=== PATIENT | male | born 1995 | race Caucasian/White ===

== ENCOUNTER 2016-04-25 14:25 | Emergency (ER) | payer BC ==
[2016-04-25] MEDS ORDERED: ACETAMINOPHEN TAB 500 MG TAB PO STA (15:30)
[2016-04-25] MEDS ORDERED: RX INFO: IV CONTRAST WAS GIVEN 1 EACH MISC MISCELLANE PRN (15:30)
[2016-04-25 15:56] LABS: Basophils % (A) 0 %; CH 31.5; CHCM 35.3; Eosinophils # (A) 0.1 k/uL (0-0.7); Eosinophils % (A) 0 %; HCT 44.3 % (39.0-53.0); HDW 2.57; HGB 15.1 gm/dL (13.0-17.5); Luc # (Auto) 0.19; Luc % (Auto) 2; Lymphocytes # (A) 1.6 k/uL (1.0-4.8); Lymphocytes % (A) 14 %; MCH 30.6 pg (25.0-35.0); MCHC 34.2 g/dL (31.0-37.0); MCV 89.7 fL (80.0-100.0); Mean Platelet Volume 6.5; Monocytes # (A) 0.7 k/uL (0-1.0); Monocytes % (A) 6 %; Neutrophils # (A) 8.7 k/uL (1.3-7.7); Neutrophils % (A) 77 %; RBC 4.94 m/uL (4.30-5.90); RDW 13.2 % (11.5-15.5); WBC 11.3 k/uL (3.8-10.6); WBC (Perox) 11.55
--- NOTE | 2016-04-25 15:58 | ED ---
ENT HPI - General Chief complaint: ENT Stated complaint: Fever/Swollen throat Time Seen by Provider: 04/25/16 15:23 Source: patient, RN notes reviewed Mode of arrival: ambulatory Limitations: no limitations - History of Present Illness Initial comments: 21-year-old male presents emergency Department chief complaint swollen tonsils. Patient states started last few days. Patient states that he had a history of tonsillar abscess in November and which he was admitted to the Hospital in 3- 4 Days in [place] for IV antibiotics. Initially did talk about opening the abscess with never did. Patient states that he was seen by urgent care yesterday told him it was just a viral illness at the strep was negative. Patient had increase in swelling to his left tonsil with increased pain. Patient had fever consistent. Patient took some ibuprofen around 2:00. Is not having acetaminophen. Patient is swelling secretions well or states it is painful. Patient denies any headache, dizziness, neck stiffness. Patient denies any cough or chest congestion. - Related Data Home Medications Medication Instructions Recorded Confirmed Ibuprofen [Motrin] 800 mg PO BID PRN 04/25/16 04/25/16 Previous Rx's Medication Instructions Recorded Amoxicillin/Potassium Clav 1 tab PO Q12HR #20 tab 04/25/16 [Augmentin 875-125 Tablet] methylPREDNISolone [Medrol Dose 4 mg PO DIRECTED #1 pack 04/25/16 Pack] Allergies Allergy/AdvReac Type Severity Reaction Status Date / Time No Known Allergies Allergy Verified 04/25/16 15:03 Review of Systems ROS Statement: Those systems with pertinent positive or pertinent negative responses have been documented in the HPI. ROS Other: All systems not noted in ROS Statement are negative. Past Medical History Additional Past Medical History / Comment(s): throat abcess History of Any Multi-Drug Resistant Organisms: None Reported Past Surgical History: No Surgical Hx Reported Past Psychological History: No Psychological Hx Reported Smoking Status: Current every day smoker Past Alcohol Use History: Occasional Past Drug Use History: None Reported General Exam Limitations: no limitations General appearance: alert, in no apparent distress Head exam: Present: atraumatic, normocephalic, normal inspection Eye exam: Present: normal appearance, PERRL, EOMI. Absent: scleral icterus, conjunctival injection, periorbital swelling ENT exam: Present: mucous membranes moist, TM's normal bilaterally, normal external ear exam. Absent: normal exam, normal oropharynx (Erythema noted of the posterior pharynx, large edematous tonsil on the left with exudates bilaterally patient is swallowing secretions well) Neck exam: Present: normal inspection, full ROM, lymphadenopathy (Left anterior) . Absent: tenderness, meningismus Respiratory exam: Present: normal lung sounds bilaterally. Absent: respiratory distress, wheezes, rales, rhonchi, stridor Cardiovascular Exam: Present: normal rhythm, tachycardia, normal heart sounds. Absent: systolic murmur, diastolic murmur, rubs, gallop, clicks Neurological exam: Present: alert, oriented X3, CN II-XII intact Course Vital Signs 04/25/16 04/25/16 14:27 16:35 Temperature 101.5 F H 97.7 F Pulse Rate 124 H 92 Respiratory 17 16 Rate Blood Pressure 107/51 120/58 O2 Sat by Pulse 96 97 Oximetry Medical Decision Making - Medical Decision Making 21-year-old male present emergency department for fever, swollen tonsils. Patient has no tonsillar abscess on CT. Patient states strep, pedophile is negative. Patient was started antibiotics for possible Bactrim infection was most likely is viral. Patient given steroids to help reduce mom swelling. I strongly advise them that they need to see ENT this week for follow-up and that he most likely needs his tonsils, adenoids removed. Return parameters were discussed. Family, patient's questions were answered. - Lab Data Result diagrams: 04/25/16 15:45 04/25/16 15:45 Lab Results 04/25/16 04/25/16 04/25/16 Range/Units 15:45 15:45 15:45 WBC 11.3 H (3.8-10.6) k/uL RBC 4.94 (4.30-5.90) m/uL Hgb 15.1 (13.0-17.5) gm/dL Hct 44.3 (39.0-53.0) % MCV 89.7 (80.0-100.0) fL MCH 30.6 (25.0-35.0) pg MCHC 34.2 (31.0-37.0) g/dL RDW 13.2 (11.5-15.5) % Plt Count 210 (150-450) k/uL Neutrophils % 77 % Lymphocytes % 14 % Monocytes % 6 % Eosinophils % 0 % Basophils % 0 % Neutrophils # 8.7 H (1.3-7.7) k/uL Lymphocytes # 1.6 (1.0-4.8) k/uL Monocytes # 0.7 (0-1.0) k/uL Eosinophils # 0.1 (0-0.7) k/uL Basophils # 0.0 (0-0.2) k/uL Sodium 140 (137-145) mmol/L Potassium 3.7 (3.5-5.1) mmol/L Chloride 107 (98-107) mmol/L Carbon Dioxide 21 L (22-30) mmol/L Anion Gap 12 mmol/L BUN 8 L (9-20) mg/dL Creatinine 0.90 (0.66-1.25) mg/dL Est GFR (MDRD) Af Amer >60 (>60 ml/min/1.73 sqM) Est GFR (MDRD) Non-Af >60 (>60 ml/min/1.73 sqM) Glucose 93 (74-99) mg/dL Calcium 8.8 (8.4-10.2) mg/dL Total Bilirubin 0.7 (0.2-1.3) mg/dL AST 13 L (17-59) U/L ALT 33 (21-72) U/L Alkaline Phosphatase 63 (38-126) U/L Total Protein 7.1 (6.3-8.2) g/dL Albumin 4.1 (3.5-5.0) g/dL Heterophile Antibody Negative (Negative) Group A Strep Rapid (Negative) 04/25/16 Range/Units 15:45 WBC (3.8-10.6) k/uL RBC (4.30-5.90) m/uL Hgb (13.0-17.5) gm/dL Hct (39.0-53.0) % MCV (80.0-100.0) fL MCH (25.0-35.0) pg MCHC (31.0-37.0) g/dL RDW (11.5-15.5) % Plt Count (150-450) k/uL Neutrophils % % Lymphocytes % % Monocytes % % Eosinophils % % Basophils % % Neutrophils # (1.3-7.7) k/uL Lymphocytes # (1.0-4.8) k/uL Monocytes # (0-1.0) k/uL Eosinophils # (0-0.7) k/uL Basophils # (0-0.2) k/uL Sodium (137-145) mmol/L Potassium (3.5-5.1) mmol/L Chloride (98-107) mmol/L Carbon Dioxide (22-30) mmol/L Anion Gap mmol/L BUN (9-20) mg/dL Creatinine (0.66-1.25) mg/dL Est GFR (MDRD) Af Amer (>60 ml/min/1.73 sqM) Est GFR (MDRD) Non-Af (>60 ml/min/1.73 sqM) Glucose (74-99) mg/dL Calcium (8.4-10.2) mg/dL Total Bilirubin (0.2-1.3) mg/dL AST (17-59) U/L ALT (21-72) U/L Alkaline Phosphatase (38-126) U/L Total Protein (6.3-8.2) g/dL Albumin (3.5-5.0) g/dL Heterophile Antibody (Negative) Group A Strep Rapid Negative (Negative) Disposition Clinical Impression: Acute tonsillitis Disposition: HOME SELF-CARE Condition: Stable Instructions: Tonsillitis (ED) Additional Instructions: Please return to the Emergency Department if symptoms worsen or any other concerns. Prescriptions: Amoxicillin/Potassium Clav [Augmentin 875-125 Tablet] 1 tab PO Q12HR #20 tab methylPREDNISolone [Medrol Dose Pack] 4 mg PO DIRECTED #1 pack Referrals: Pat Mckeon MD [Primary Care Provider] - 1-2 days Avtar Walker DO [Doctor of Osteopathic Medicine] - 1-2 days Time of Disposition: 17:04
[2016-04-25 16:11] LABS: ALT 33 U/L (21-72); AST 13 U/L (17-59); Alkaline Phosphatase 63 U/L (38-126); Anion Gap 12 mmol/L; Blood Urea Nitrogen 8 mg/dL (9-20); Calcium 8.8 mg/dL (8.4-10.2); Carbon Dioxide 21 mmol/L (22-30); Chloride 107 mmol/L (98-107); Glucose 93 mg/dL (74-99); Non-African American GFR(MDRD) >60 (>60 ml/min/1.73 sqM); Potassium 3.7 mmol/L (3.5-5.1); Sodium 140 mmol/L (137-145); Total Bilirubin 0.7 mg/dL (0.2-1.3); Total Protein 7.1 g/dL (6.3-8.2)
--- NOTE | 2016-04-25 16:30 | CT ---
EXAMINATION TYPE: CT soft tissue neck w con DATE OF EXAM: 04/25/2016 4:05 PM COMPARISON: NONE HISTORY: Patient complains of swollen tonsils. CT DLP: 391.8 mGycm CONTRAST: CT scan of the neck is performed with IV Contrast, patient injected with 100 mL of Omnipaque 300. Contrast enhanced CT of the neck was performed from the skull base through the lung apices. AIRWAY: There is prominence of the bilateral tonsillar pillars of measuring approximately 2.8 x 2.4x5 .5 cm on the left and 2.5 x 2.4 x 4.0 cm on the right. There is luminal narrowing of the airway measu ring 3 mm in greatest transverse dimension on image 72 of 109. There is no evidence for abscess at th is time. Prominence of the adenoids is also appreciated measuring 3.3 cm AP dimension. Prominence is also noted of the sublingual tonsils. SALIVARY GLANDS: The submandibular and parotid glands are free of mass or inflammatory process. THYROID GLAND: No nodules or masses seen. LYMPH NODES: There are reactive enlarged lymph nodes within the internal jugular chains bilaterally m easuring up to 2 cm on the left and a 1.2 cm on the right. LUNG APICES: No nodule or mass is seen. OTHER: Vascular structures are patent. No significant degenerative change of the cervical spine. N o abscess seen. Ossified right hilar lymph nodes. IMPRESSION: 1. Inflammatory prominence of the bilateral tonsillar pillars, sublingual tonsils and adenoids. No ab scess at this time. Reactive adenopathy as discussed.
[2016-04-25 16:37] VITALS: BP 120/58; PULSE 92; RESP 16; TEMP 97.7
[2016-04-25] MEDS ORDERED: methylPREDNISolone SOD SUCCI 125 MG/2 ML VIAL IV STA (17:02)
== END 2016-04-25 17:13 | disposition home or self-care (01) ==
LOC: EC 14:25
DX: J03.90 Acute tonsillitis, unspecified (principal); F17.200 Nicotine dependence, unspecified, uncomplicated
CPT/HCPCS: 36415; 80053; 85025; 86308; 87081; 87430; 70491; 99283; 96374; J2930; Q9967

== ENCOUNTER 2016-07-01 07:21 | Day surgery (SDC) | payer BC ==
[2016-06-29 13:47] VITALS: BMI 22.5
[~2016-07-01 07:21] MED LIST: DEXAMETHASONE SOD PHOSPHATE 10 MG/ML 1 ML VIAL IV ONE; DEXAMETHASONE SOD PHOSPHATE 4 MG/ML 1 ML VIAL IV ONE; FAMOTIDINE 20 MG/2 ML VIAL IV ONE; HYDROmorphone 1 MG/ML 1 ML SYRINGE IVP PRN; LACTATED RINGERS 1,000 ML IV SCH; LIDOCAINE 1% 20 ML VIAL (10MG/ML) FOR IV START INTRADERMA PRN; MIDAZOLAM 2 MG/2 ML VIAL IV PRN; ONDANSETRON 4 MG/2 ML VIAL IVP ONE; Pre Op ABX Message 1 EACH MISC MISCELLANE ONE; SCOPOLAMINE 1.5MG/72HR PATCH TRANSDERM ONE
[2016-07-01] MEDS ORDERED: fentaNYL (PF) 50 MCG/ML 2 ML AMP ONE (08:48)
[2016-07-01] MEDS ORDERED: LIDOCAINE 1% INJ 10MG/ML (20 ML MDV) ONE ×2 (08:48)
[2016-07-01] MEDS ORDERED: SUCCINYLCHOLINE CHLORIDE VIAL 200 MG/10 ML VIAL IV ONE (08:48)
[2016-07-01] MEDS ORDERED: MIDAZOLAM 2 MG/2 ML VIAL ONE (08:48)
[2016-07-01] MEDS ORDERED: PROPOFOL 10 MG/ML 20 ML VIAL IV ONE (08:48)
[2016-07-01] MEDS ORDERED: DEXAMETHASONE SOD PHOS (MDV) 100 MG/10 ML VIAL ONE (08:48)
[2016-07-01] MEDS ORDERED: LIDOCAINE 1%-EPI 1:100,000 20 ML VIAL SQ ONE (09:12)
[2016-07-01] MEDS ORDERED: BUPIVACAINE (PF) 0.25% 30 ML VIAL SQ ONE (09:12)
[2016-07-01 09:51] VITALS: TEMP 97.3
--- NOTE | 2016-07-01 10:00 | P.OP ---
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 The situation at sober that he was actually hospitalized in [place] for his tonsillitis. He has problems with recurring abscesses of his tonsils and peritonsillar abscesses. 3 weeks previously went to the local emergency room with another peritonsillar abscess. The required hospitalization also. Again of his frequent hospitalizations and his frequent peritonsillar abscesses removal of tonsils and adenoids is advised. Operative Findings: Large cryptic tonsils and adenoids. Description of Procedure: Prior to surgery all risks, benefits, and alternative therapies were discussed in detail. Risks of bleeding, infection, need for secondary surgery, airway problems, anesthetic complications, etc. etc. were discussed in detail. Consent was obtained and all questions were answered. OPERATIVE PROCEDURE: This patient was taken to the operative room and placed in the supine position. A functioning IV line was in placed and the patient was monitored throughout the entire case by the department of anesthesia. The patient underwent general anesthetic with intubation and tube was secured. A McIvor mouth gag was placed into the patients mouth with care to avoid any trauma to the lips, teeth, gums or tongue. Mouth was opened and tongue was depressed. The tonsils were grasped with an Allis forceps and brought medially bilaterally. A subcapsular dissection was performed utilizing an Evac-70 handpiece with an Arthrotec setting of 7. The tonsils were removed without incident bilaterally and the tonsillar fossae were inspected and bleeding was nonexistent and stopped spontaneously with Coblation. A Marcaine and lidocaine mixture was injected into the peritonsillar area for anesthesia postoperatively. After the tonsillar fossae were reinspected and no bleeding was seen attention was then paid to the nasopharynx where a red rubber catheter was placed into the nose and out the mouth and used to retract the soft palate. With use of indirect mirror examination and the Coblation hand wand, the adenoid tissue was removed in that fashion again utilizing an Evac-70 handpiece with Arthrotec setting of 7. The adenoid tissues were removed and fulgurated. The patient tolerated this procedure well. The nasopharynx shows no signs of any bleeding. McIvor mouth gag and the red rubber catheter were removed. The stomach was suctioned and the patient was taken to postanesthesia recovery in excellent condition having tolerated this procedure well. The patient will follow up in the office in one week as scheduled.
[2016-07-01 10:33] VITALS: RESP 16
[2016-07-01] MEDS ORDERED: IBUPROFEN 200 MG TAB PO ONE (11:11)
[2016-07-01 11:19] VITALS: BP 107/64; PULSE 71
== END 2016-07-01 11:43 | disposition home or self-care (01) ==
LOC: OR 07:21
PROVIDERS: ATTEND Otolaryngology
DX: J35.03 Chronic tonsillitis and adenoiditis (principal); F17.200 Nicotine dependence, unspecified, uncomplicated; Z79.1 Long term (current) use of non-steroidal anti-inflammatories (NSAID)
CPT/HCPCS: 88304; 42821; J2250; J0330; J1100 ×2; J2405; J2001; J3010; J2704

== ENCOUNTER 2021-09-21 22:45 | Inpatient (IN) | payer MEDICAID, OTHER ==
--- NOTE | 2021-09-21 23:06 | ED ---
Psych HPI - General Source: patient, police Mode of arrival: ambulatory <David Pardo - Last Filed: 09/22/21 00:56> <Jaren Pedraza - Last Filed: 09/22/21 03:18> - General Chief Complaint: Psychiatric Symptoms Stated Complaint: Mental health Time Seen by Provider: 09/21/21 22:52 - History of Present Illness Initial Comments: This 26-year-old male presents with the complaint of some depression. He states that he has been depressed for most of his life. He relates that he has multiple psychiatric problems including bipolar disorder, ADHD, anxiety, autism. He states that it was somewhat worse over the last day. He has been having thoughts of hurting himself. He apparently called his therapist and they told him to come to the emergency department. He was here several months ago and the psychiatric team put him on some medications. He states that his lithium ran out and he did not get it refilled. He states that the other medications made him feel worse so he stopped taking them. He denies any current medical issues. He has had thoughts of cutting himself as well. No other modifying factors. (David Pardo) - Related Data Previous Rx's Medication Instructions Recorded Divalproex ER [Depakote ER] 500 mg PO HS 14 Days tab 06/02/21 LORazepam [Ativan] 0.5 mg PO DAILY PRN 3 Days #3 tab 06/02/21 Melatonin 6 mg PO HS 14 Days tablet 06/02/21 Nicotine 21Mg/24Hr Patch [Habitrol] 1 patch TRANSDERM DAILY 14 Days 06/02/21 patch Allergies Allergy/AdvReac Type Severity Reaction Status Date / Time No Known Allergies Allergy Verified 09/21/21 22:50 Review of Systems ROS Other: All systems not noted in ROS Statement are negative. <David Pardo - Last Filed: 09/22/21 00:56> ROS Other: All systems not noted in ROS Statement are negative. <Jaren Pedraza - Last Filed: 09/22/21 03:18> ROS Statement: Those systems with pertinent positive or pertinent negative responses have been documented in the HPI. Past Medical History Additional Past Medical History / Comment(s): THROAT ABSCESS History of Any Multi-Drug Resistant Organisms: None Reported Past Surgical History: No Surgical Hx Reported Past Anesthesia/Blood Transfusion Reactions: No Reported Reaction Additional Past Anesthesia/Blood Transfusion Reaction / Comment(s): FIRST ANSTHETIC Past Psychological History: No Psychological Hx Reported Smoking Status: Current every day smoker Past Alcohol Use History: Occasional Past Drug Use History: Cocaine - Past Family History Mother Family Medical History: No Reported History <CharDavidGiorgi - Last Filed: 09/22/21 00:56> General Exam Limitations: no limitations <CharGiorgi - Last Filed: 09/22/21 00:56> - General Exam Comments Initial Comments: GENERAL: The patient is well nourished and well hydrated. VITAL SIGNS: Heart rate, blood pressure, respiratory rate reviewed as recorded in nurse's notes. EYES: Pupils are round and reactive. Extraocular movements are intact. No conjunctival / lid redness or swelling. ENT: No external evidence of injury, swelling, or ecchymosis. Airway is patent. Throat is clear. NECK: Nontender. No swelling or evidence of injury. No subcutaneous emphysema. Trachea is midline. No thyroid mass. HEART: Regular rate and rhythm. Good peripheral pulses. LUNGS/CHEST: Breath sounds clear and equal bilaterally. No rales, rhonchi, or wheezes. No ecchymosis, subcutaneous emphysema, or tenderness. ABDOMEN: Abdomen soft without tenderness. No palpable masses or organomegaly. No peritoneal signs. No abdominal wall swelling or ecchymosis. EXTREMITIES: No extremity tenderness. Normal muscle tone and function. No thoracolumbar tenderness. NEUROLOGIC: Sensation is grossly intact. Cranial nerve exam reveals face is symmetrical, tongue is midline, speech is clear. SKIN: No abrasions or ecchymosis is noted. No induration or masses noted. PSYCHIATRIC: Alert and oriented. Appropriate behavior currently. (David Pardo) Course Vital Signs 09/21/21 22:47 Temperature 98.1 F Pulse Rate 101 H Respiratory 20 Rate Blood Pressure 156/96 O2 Sat by Pulse 98 Oximetry Medical Decision Making <CharDavidGiorgi - Last Filed: 09/22/21 00:56> - Medical Decision Making The patient was seen and examined. Alcohol breath test and urine drug screen are ordered. It sounds as though the patient is noncompliant with his rec ommended psychiatric medication regimen. Consult is placed for the psychiatric team. We're currently awaiting mental health evaluation and further care will be passed off to Dr. Pedraza. (David Pardo) - Lab Data Lab Results 09/21/21 Range/Units 23:27 Urine Opiates Screen Not Detected (NotDetected) Ur Oxycodone Screen Not Detected (NotDetected) Urine Methadone Screen Not Detected (NotDetected) Ur Propoxyphene Screen Not Detected (NotDetected) Ur Barbiturates Screen Not Detected (NotDetected) U Tricyclic Antidepress Not Detected (NotDetected) Ur Phencyclidine Scrn Not Detected (NotDetected) Ur Amphetamines Screen Detected H (NotDetected) U Methamphetamines Scrn Not Detected (NotDetected) U Benzodiazepines Scrn Not Detected (NotDetected) Urine Cocaine Screen Not Detected (NotDetected) U Marijuana (THC) Screen Not Detected (NotDetected) Disposition <David Pardo - Last Filed: 09/22/21 00:56> Is patient prescribed a controlled substance at d/c from ED?: No <Jaren Pedraza - Last Filed: 09/22/21 03:18> Clinical Impression: Depression, Suicidal ideation, Bipolar disorder, PTSD (post-traumatic stress disorder) Disposition: ADMITTED IP TO THIS HOSP Condition: Fair Referrals: None,Stated [Primary Care Provider] - 1-2 days
[2021-09-22 00:24] LABS: Amphetamine Screen,Urine Detected (NotDetected); Barbiturate Screen,Urine Not Detected (NotDetected); Benzodiazepines Screen,Urine Not Detected (NotDetected); Cocaine Screen,Urine Not Detected (NotDetected); Methadone Screen, Urine Not Detected (NotDetected); Opiate Screen,Urine Not Detected (NotDetected); Oxycodone Screen, Urine Not Detected (NotDetected); Phencyclidine Screen,Urine Not Detected (NotDetected); Tricyclic Antidepressant,Urine Not Detected (NotDetected); Urn Cannabinoid Scrn Not Detected (NotDetected)
[2021-09-22] MEDS ORDERED: NICOTINE 14MG/24HR PATCH TRANSDERM STA (02:29)
[2021-09-22] MEDS ORDERED: MAG HYDROX/AL HYDROX/SIMETH 30 ML CUP PO PRN (04:45)
[2021-09-22] MEDS ORDERED: MAGNESIUM HYDROXIDE 2,400 MG/10 ML CUP PO PRN (04:45)
[2021-09-22] MEDS ORDERED: ACETAMINOPHEN TAB 325 MG TAB PO PRN (04:45)
[2021-09-22] MEDS ORDERED: LORazepam 1 MG TAB PO PRN (04:45)
[2021-09-22] MEDS ORDERED: HALOPERIDOL LACTATE 5 MG/ML 1 ML VIAL IM PRN (04:45)
[2021-09-22] MEDS ORDERED: LORazepam 2 MG/ML INJ IM PRN (04:48)
[2021-09-22] MEDS ORDERED: haloperidoL 5 MG TAB PO PRN (04:49)
[2021-09-22 05:46] VITALS: RESP 18; TEMP 98.2
[2021-09-22] MEDS: NICOTINE 14MG/24HR PATCH TRANSDERM SCH (09:03)
[2021-09-22 10:41] LABS: Basophils % (A) 1 %; Eosinophils # (A) 0.2 k/uL (0-0.7); Eosinophils % (A) 4 %; HCT 44.2 % (39.0-53.0); HGB 14.7 gm/dL (13.0-17.5); Lymphocytes # (A) 1.8 k/uL (1.0-4.8); Lymphocytes % (A) 43 %; MCH 30.2 pg (25.0-35.0); MCHC 33.3 g/dL (31.0-37.0); MCV 90.7 fL (80.0-100.0); Mean Platelet Volume 7.2; Monocytes # (A) 0.2 k/uL (0-1.0); Monocytes % (A) 5 %; Neutrophils # (A) 1.9 k/uL (1.3-7.7); Neutrophils % (A) 46 %; Platelet Count 244 k/uL (150-450); RBC 4.88 m/uL (4.30-5.90); RDW 12.5 % (11.5-15.5); WBC 4.2 k/uL (3.8-10.6)
[2021-09-22 10:57] LABS: ALT 79 U/L (4-49); AST 39 U/L (17-59); African American GFR (CKD) >90 (>60 ml/min/1.73 sqM); Albumin 4.4 g/dL (3.5-5.0); Alkaline Phosphatase 68 U/L (38-126); Anion Gap 5 mmol/L; Blood Urea Nitrogen 14 mg/dL (9-20); Calcium 9.1 mg/dL (8.4-10.2); Carbon Dioxide 27 mmol/L (22-30); Chloride 110 mmol/L (98-107); Glucose 92 mg/dL (74-99); Non-African American GFR(CKD) >90 (>60 ml/min/1.73 sqM); Potassium 4.5 mmol/L (3.5-5.1); Sodium 142 mmol/L (137-145); Total Bilirubin 0.4 mg/dL (0.2-1.3); Total Protein 7.2 g/dL (6.3-8.2)
--- NOTE | 2021-09-22 14:14 | P.HP ---
Psychiatric H&P - . H&P Date: 09/22/21 History & Physical: Allergies Allergy/AdvReac Type Severity Reaction Status Date / Time No Known Allergies Allergy Verified 09/21/21 22:50 Vital Signs Temp 98.2 F 09/22/21 05:36 Pulse 84 09/22/21 05:36 Resp 18 09/22/21 05:36 BP 126/79 09/22/21 05:36 Pulse Ox 96 09/22/21 05:36 FiO2 Intake & Output 09/21/21 09/22/21 09/22/21 18:59 06:59 18:59 Weight 108.862 kg Laboratory Last Values WBC 4.2 k/uL (3.8-10.6) 09/22/21 09:44 RBC 4.88 m/uL (4.30-5.90) 09/22/21 09:44 Hgb 14.7 gm/dL (13.0-17.5) 09/22/21 09:44 Hct 44.2 % (39.0-53.0) 09/22/21 09:44 MCV 90.7 fL (80.0-100.0) 09/22/21 09:44 MCH 30.2 pg (25.0-35.0) 09/22/21 09:44 MCHC 33.3 g/dL (31.0-37.0) 09/22/21 09:44 RDW 12.5 % (11.5-15.5) 09/22/21 09:44 Plt Count 244 k/uL (150-450) 09/22/21 09:44 MPV 7.2 09/22/21 09:44 Neutrophils % 46 % 09/22/21 09:44 Lymphocytes % 43 % 09/22/21 09:44 Monocytes % 5 % 09/22/21 09:44 Eosinophils % 4 % 09/22/21 09:44 Basophils % 1 % 09/22/21 09:44 Neutrophils # 1.9 k/uL (1.3-7.7) 09/22/21 09:44 Lymphocytes # 1.8 k/uL (1.0-4.8) 09/22/21 09:44 Monocytes # 0.2 k/uL (0-1.0) 09/22/21 09:44 Eosinophils # 0.2 k/uL (0-0.7) 09/22/21 09:44 Basophils # 0.0 k/uL (0-0.2) 09/22/21 09:44 Sodium 142 mmol/L (137-145) 09/22/21 09:59 Potassium 4.5 mmol/L (3.5-5.1) 09/22/21 09:59 Chloride 110 mmol/L (98-107) H 09/22/21 09:59 Carbon Dioxide 27 mmol/L (22-30) 09/22/21 09:59 Anion Gap 5 mmol/L 09/22/21 09:59 BUN 14 mg/dL (9-20) 09/22/21 09:59 Creatinine 1.04 mg/dL (0.66-1.25) 09/22/21 09:59 Est GFR (CKD-EPI)AfAm >90 (>60 ml/min/1.73 sqM) 09/22/21 09:59 Est GFR (CKD-EPI)NonAf >90 (>60 ml/min/1.73 sqM) 09/22/21 09:59 Glucose 92 mg/dL (74-99) 09/22/21 09:59 Calcium 9.1 mg/dL (8.4-10.2) 09/22/21 09:59 Total Bilirubin 0.4 mg/dL (0.2-1.3) 09/22/21 09:59 AST 39 U/L (17-59) 09/22/21 09:59 ALT 79 U/L (4-49) H 09/22/21 09:59 Alkaline Phosphatase 68 U/L (38-126) 09/22/21 09:59 Total Protein 7.2 g/dL (6.3-8.2) 09/22/21 09:59 Albumin 4.4 g/dL (3.5-5.0) 09/22/21 09:59 TSH 0.998 mIU/L (0.465-4.680) 09/22/21 09:59 Urine Opiates Screen Not Detected (NotDetected) 09/21/21 23:27 Ur Oxycodone Screen Not Detected (NotDetected) 09/21/21 23:27 Urine Methadone Screen Not Detected (NotDetected) 09/21/21 23:27 Ur Propoxyphene Screen Not Detected (NotDetected) 09/21/21 23:27 Ur Barbiturates Screen Not Detected (NotDetected) 09/21/21 23:27 U Tricyclic Antidepress Not Detected (NotDetected) 09/21/21 23:27 Ur Phencyclidine Scrn Not Detected (NotDetected) 09/21/21 23:27 Ur Amphetamines Screen Detected (NotDetected) H 09/21/21 23:27 U Methamphetamines Scrn Not Detected (NotDetected) 09/21/21 23:27 U Benzodiazepines Scrn Not Detected (NotDetected) 09/21/21 23:27 Urine Cocaine Screen Not Detected (NotDetected) 09/21/21 23:27 U Marijuana (THC) Screen Not Detected (NotDetected) 09/21/21 23:27 Coronavirus (PCR) Not Detected (Not Detectd) 09/22/21 03:15 09/22/21 14:13 IDENTIFYING DATA: Patient is a 26-year-old male with significant history of under petition and certification for suicidal ideation with a plan to hang himself. HPI: Patient presented to the hospital on 09/22/2021, brought into the hospital by police after endorsing suicidal ideation with a plan to hang himself. The patient spoke to his therapist at [facility] who then notified police about his suicidal ideation and intention to hang himself. The patient has been off his medications since he was last discharged. The patient reports that he has been feeling increasingly anxious and depressed after experiencing a "manic episode" for 3 weeks straight. He reports that during this manic episode, he has been having increased sexual activity, increased energy, and increased impulsive behaviors. He reports that afterwards, he began to feel extremely depressed and had a "downward spiral." The patient reports that he has been feeling increasingly suicidal. He does endorse significant symptoms depression including hopelessness and helplessness. He reports a strong feeling of wanting to isolate. The patient does report some auditory hallucinations in the form of "God talking to me." However when asked to elaborate, the patient reports that this is his personal relationship with God. He is otherwise not reporting any other psychotic symptoms. The patient does report that he does have a significant history of trauma. However, the patient refuses to elaborate stating that he has previously his trauma to the psychiatrist during his last psychiatric hospitaliz ation. The patient reports a significant history of symptoms consistent with borderline personality disorder. He does report a significant history of self-injurious behavior, chronic feelings of emptiness, impulsivity and relationships, and splitting. He is admitted for further evaluation and management. PAST PSYCHIATRIC HISTORY: Patient states that he has been previously diagnosed with bipolar disorder. The patient suspects that he is autistic. The patient was discharged on a regimen of Depakote during his last hospitalization or her reports that lithium has been most beneficial for him. Patient was last hospitalized on the psychiatric unit in May 2021. The patient is open with [facility] Patient denies any history of suicide attempts in the past. PMH: Additional Past Medical History / Comment(s): THROAT ABSCESS History of Any Multi-Drug Resistant Organisms: None Reported Past Surgical History: No Surgical Hx Reported Past Anesthesia/Blood Transfusion Reactions: No Reported Reaction Additional Past Anesthesia/Blood Transfusion Reaction / Comment(s): FIRST ANSTHETIC Past Psychological History: No Psychological Hx Reported Smoking Status: Current every day smoker Past Alcohol Use History: Occasional Past Drug Use History: Cocaine ALLERGIES: NO KNOWN DRUG ALLERGIES CHEMICAL DEPENDENCY HISTORY: Patient reports that he vapes daily. He reports otherwise 1 cigarette per day. He reports rare alcohol use. He denies any drug use or marijuana use. The patient does have a history of psychedelics and cocaine use during his high school years. FAMILY PSYCHIATRIC/SUBSTANCE USE HISTORY: As per chart review, mother is addicted to opiates. SOCIAL HISTORY: Patient was born and raised in [place]. He is single, never . MENTAL STATUS EXAM: General Appearance: Patient appears to be stated age is alert, directable, and attempts to cooperate. Patient appears to have fair hygiene and grooming. Behavior: Patient is seated without any agitated behavior. Eye contact is poor. Speech: Patient's speech is fluent and nonpressured. Monotone. Mood/Affect: Patient reports their mood is depressed, affect is congruent and blunted. Suicidality/Homicidality: Patient is currently denying both suicidal and homicidal ideation. Perceptions: Patient denies any visual hallucinations and denies any auditory hallucinations Though content/process: There is no evidence of any delusional thought content and thought process is linear and goal-directed. Memory and concentration: AOX3, grossly intact for the purposes of this session. Can spell "WORLD" backwards Judgment and insight: poor STRENGTHS/WEAKNESSES: Strengths that the patient is resilient. Weakness is that the patient has poor coping skills. INTELLECT: average IMPRESSIONS: Bipolar 2 disorder, depressive episode Borderline personality disorder Posttraumatic stress disorder PLAN: -Patient is admitted under voluntary status to MHU for stabilization of psychiatric symptoms and safety. Patient signed adult voluntary form and medication consent and is placed in patient's chart. -Medications : Will start patient on [place] 300 mg by mouth at bedtime for mood stabilization Prazosin 1 mg by mouth at bedtime for PTSD -Ativan and Haldol PRN for agitation/aggression -Patient was counselled on substance abuse and desired to cut back on use -Patient was informed of the risks, benefits and side effects of the medication and patient verbally consented to taking the medications. Patient signed med consent form and was placed in chart. -Internal Medicine consult to perform medical evaluation and physical. -NRT - nicotine patch -SW on board for discharge planning. Encourage patient to participate in groups to work on coping skills. 09/22/21 14:13
[2021-09-22 14:29] LABS: Chol/HDL Ratio 4.12 Ratio; LDL Cholesterol,Calculated 90.4 mg/dL (0.0-131.0)
[2021-09-22] MEDS ORDERED: PRAZOSIN 1 MG CAP PO SCH (21:00)
[2021-09-22] MEDS ORDERED: LITHIUM CARBONATE 300 MG CAP PO SCH (21:00)
[2021-09-22 22:34] VITALS: BP 125/67; PULSE 103
[2021-09-23] MEDS: NICOTINE 14MG/24HR PATCH TRANSDERM SCH (09:09)
--- NOTE | 2021-09-23 13:10 | P.DS ---
Providers Date of admission: 09/22/21 04:42 Expected date of discharge: 09/23/21 Attending physician: Miguel Donaldson MD Consults: 09/22/21 04:45 Consult Physician Routine Consulting Provider: Katiana Arias Consult Reason/Comments: For H & P for Medical Follow Up Do you want consulting provider notified?: Yes Primary care physician: Stated None - Discharge Diagnosis(es) (1) Bipolar 2 disorder, major depressive episode Status: Acute Priority: High (2) Borderline personality disorder Status: Chronic Priority: Medium (3) PTSD (post-traumatic stress disorder) Status: Chronic Priority: Medium Hospital Course: Admission HPI: Patient is a 26-year-old male with significant history of under petition and certification for suicidal ideation with a plan to hang himself. Patient presented to the hospital on 09/22/2021, brought into the hospital by police after endorsing suicidal ideation with a plan to hang himself. The patient spoke to his therapist at [facility] who then notified police about his suicidal ideation and intention to hang himself. The patient has been off his medications since he was last discharged. The patient reports that he has been feeling increasingly anxious and depressed after experiencing a "manic episode" for 3 weeks straight. He reports that during this manic episode, he has been having increased sexual activity, increased energy, and increased impulsive behaviors. He reports that afterwards, he began to feel extremely depressed and had a "downward spiral." The patient reports that he has been feeling increasingly suicidal. He does endorse significant symptoms depression including hopelessness and helplessness. He reports a strong feeling of wanting to isolate. The patient does report some auditory hallucinations in the form of "God talking to me." However when asked to elaborate, the patient reports that this is his personal relationship with God. He is otherwise not reporting any other psychotic symptoms. The patient does report that he does have a significant history of trauma. However, the patient refuses to elaborate stating that he has previously divorce d his trauma to the psychiatrist during his last psychiatric hospitalization. The patient reports a significant history of symptoms consistent with borderline personality disorder. He does report a significant history of self-injurious behavior, chronic feelings of emptiness, impulsivity and relationships, and splitting. He is admitted for further evaluation and management. Patient states that he has been previously diagnosed with bipolar disorder. The patient suspects that he is autistic. The patient was discharged on a regimen of Depakote during his last hospitalization or her reports that lithium has been most beneficial for him. Patient was last hospitalized on the psychiatric unit in May 2021. The patient is open with [facility] Patient denies any history of suicide attempts in the past. Hospital course: Upon admission to the unit patient was initially presenting as cooperative and polite. He did endorse signifcant depressive symptoms following a perceived manic episode. He signed himself voluntarily onto the psychiatric unit. Patient was however directable and agreeable to commence treatment. Patient got along well with other patients on the unit and followed unit protocol. Patient was compliant with the medications and denied any side effects throughout hospital course. Patient was started on lithium and prazosin for management of mood stabilization and PTSD. Patient spoke of his stressors and engaged in therapy both group and individual. Patient was also seen by medical team for history and physical exam. The following day, the patient reported that he was feeling significantly better and wished to be discharged. He did not endorse any suicidal or homicidal ideation, intention, and/or plan. He reports no auditory or visual hallucinations. He denies any paranoia or other delusions. The patient expresses a strong desire to live for himself and for his future. He has been adherent with his medication is not endorsing any significant side effects. He reports that after discussing this provider has diagnosis of borderline personality disorder, he remains future oriented in terms of receiving care and treatment for this. The patient was counseled lengthening points medication adherence and appropriate outpatient follow-up. Furthermore, the patient has a history of substance use and was counseled great length on abstaining from all substances including alcohol and marijuana. Prior to discharge, family meeting will be arranged by social work associate to answer questions and ensure safety. Mental status exam: General Appearance: Patient appears to be stated age is alert, pleasant, and cooperative. Patient is in no acute distress and has fair hygiene and grooming Behavior: Patient is calmly seated without any agitated behavior. Speech: Patient's speech is fluent and nonpressured. Mood/Affect: Patient reports their mood is "much better", affect is congruent and euthymic. Suicidality/Homicidality: Patient denies having any suicidal or homicidal ideation intent or plan. Perceptions: Patient denies any auditory or visual hallucinations. Though content/process: There is no evidence of any delusional thought content and thought process is linear and goal-directed. Future oriented. Memory and concentration: AOX3, grossly intact for the purposes of this session. Can spell "WORLD" backwards correctly. Judgment and insight: Improved with guarded prognosis Impression: Bipolar 2 disorder, depressive episode Borderline personality disorder Posttraumatic stress disorder Plan: -Continue with discharge today as patient has improved and stabilized psychiatrically and is not currently an imminent threat to himself and/or others. Patient will remain at chronically elevated risk for harm to self and/or others due to his impulsivity and prior attempts at self-harm. -Continue medications: [place] 300 mg by mouth at bedtime with stabilization Prazosin 1 mg by mouth at bedtime for PTSD -Patient was counseled on the need for medication compliance and appropriate follow-up at mental health and also primary care for medical issues. Patient verbalized understanding and agreed. -Social work to arrange for and conduct family meeting to ensure safety upon discharge and answer any questions/concerns. Social work also to arrange for patients follow up appointments with [facility] along with follow up with primary care provider. -Patient counseled on abstaining from recreational drugs and marijuana and alcohol. Was informed/educated on the adverse effects on their physical and mental health. Patient verbally agreed and understood. -Patient was instructed to return to the hospital or seek immediate medical care if their psychiatric or medical symptoms do worsen or reoccur. -Psychoeducation and supportive therapy provided to patient. Risks and benefits of pharmacological treatment versus the risks and benefits of nontreatment weight and discussed. Informed consent discussion held. Common side effects of psychotropics discussed such as, but not limited to headache, GI disturbance, sexual dysfunction, movement disorders, sedation, and orthostatic hypotension. Life threatening and blackbox warnings of prescribed medications also discussed. Potential risks of operating a vehicle or heavy machinery discussed with patient at length. Advised on importance of compliance and a reliable and responsible manner. Patient advised to review FDA consumer labeling of all medications prior to taking. Patient verbalized understanding of potential risks, and agrees with current treatment plan. Patient advised to medically contact physician/emergency personnel if any acute changes in condition occur. Allergies Allergy/AdvReac Type Severity Reaction Status Date / Time No Known Allergies Allergy Verified 09/21/21 22:50 Laboratory Results WBC 4.2 k/uL (3.8-10.6) 09/22/21 09:44 RBC 4.88 m/uL (4.30-5.90) 09/22/21 09:44 Hgb 14.7 gm/dL (13.0-17.5) 09/22/21 09:44 Hct 44.2 % (39.0-53.0) 09/22/21 09:44 MCV 90.7 fL (80.0-100.0) 09/22/21 09:44 MCH 30.2 pg (25.0-35.0) 09/22/21 09:44 MCHC 33.3 g/dL (31.0-37.0) 09/22/21 09:44 RDW 12.5 % (11.5-15.5) 09/22/21 09:44 Plt Count 244 k/uL (150-450) 09/22/21 09:44 MPV 7.2 09/22/21 09:44 Neutrophils % 46 % 09/22/21 09:44 Lymphocytes % 43 % 09/22/21 09:44 Monocytes % 5 % 09/22/21 09:44 Eosinophils % 4 % 09/22/21 09:44 Basophils % 1 % 09/22/21 09:44 Neutrophils # 1.9 k/uL (1.3-7.7) 09/22/21 09:44 Lymphocytes # 1.8 k/uL (1.0-4.8) 09/22/21 09:44 Monocytes # 0.2 k/uL (0-1.0) 09/22/21 09:44 Eosinophils # 0.2 k/uL (0-0.7) 09/22/21 09:44 Basophils # 0.0 k/uL (0-0.2) 09/22/21 09:44 Sodium 142 mmol/L (137-145) 09/22/21 09:59 Potassium 4.5 mmol/L (3.5-5.1) 09/22/21 09:59 Chloride 110 mmol/L (98-107) H 09/22/21 09:59 Carbon Dioxide 27 mmol/L (22-30) 09/22/21 09:59 Anion Gap 5 mmol/L 09/22/21 09:59 BUN 14 mg/dL (9-20) 09/22/21 09:59 Creatinine 1.04 mg/dL (0.66-1.25) 09/22/21 09:59 Est GFR (CKD-EPI)AfAm >90 (>60 ml/min/1.73 sqM) 09/22/21 09:59 Est GFR (CKD-EPI)NonAf >90 (>60 ml/min/1.73 sqM) 09/22/21 09:59 Glucose 92 mg/dL (74-99) 09/22/21 09:[address] Glu mg/dL 108 09/22/21 09:42 Hemoglobin A1c 5.4 % (0.0-6.0) 09/22/21 09:42 Calcium 9.1 mg/dL (8.4-10.2) 09/22/21 09:59 Total Bilirubin 0.4 mg/dL (0.2-1.3) 09/22/21 09:59 AST 39 U/L (17-59) 09/22/21 09:59 ALT 79 U/L (4-49) H 09/22/21 09:59 Alkaline Phosphatase 68 U/L (38-126) 09/22/21 09:59 Total Protein 7.2 g/dL (6.3-8.2) 09/22/21 09:59 Albumin 4.4 g/dL (3.5-5.0) 09/22/21 09:59 Triglycerides 150.00 mg/dL (0.00-149.00) H 09/22/21 09:59 Cholesterol 159.00 mg/dL (0.00-200.00) 09/22/21 09:59 LDL Cholesterol, Calc 90.4 mg/dL (0.0-131.0) 09/22/21 09:59 VLDL Cholesterol, Calc 30.00 mg/dL (5.00-40.00) 09/22/21 09:59 HDL Cholesterol 38.60 mg/dL (40.00-60.00) L 09/22/21 09:59 Cholesterol/HDL Ratio 4.12 Ratio 09/22/21 09:59 TSH 0.998 mIU/L (0.465-4.680) 09/22/21 09:59 Urine Opiates Screen Not Detected (NotDetected) 09/21/21 23:27 Ur Oxycodone Screen Not Detected (NotDetected) 09/21/21 23:27 Urine Methadone Screen Not Detected (NotDetected) 09/21/21 23:27 Ur Propoxyphene Screen Not Detected (NotDetected) 09/21/21 23:27 Ur Barbiturates Screen Not Detected (NotDetected) 09/21/21 23:27 U Tricyclic Antidepress Not Detected (NotDetected) 09/21/21 23:27 Ur Phencyclidine Scrn Not Detected (NotDetected) 09/21/21 23:27 Ur Amphetamines Screen Detected (NotDetected) H 09/21/21 23:27 U Methamphetamines Scrn Not Detected (NotDetected) 09/21/21 23:27 U Benzodiazepines Scrn Not Detected (NotDetected) 09/21/21 23:27 Urine Cocaine Screen Not Detected (NotDetected) 09/21/21 23:27 U Marijuana (THC) Screen Not Detected (NotDetected) 09/21/21 23:27 Coronavirus (PCR) Not Detected (Not Detectd) 09/22/21 03:15 Vital Signs Temp 98.2 F 09/22/21 05:36 Pulse 103 H 09/22/21 22:33 Resp 18 09/22/21 05:36 BP 125/67 09/22/21 22:33 Pulse Ox 96 09/22/21 05:36 FiO2 Patient Condition at Discharge: Stable Plan - Discharge Summary New Discharge Prescriptions: New [place] Carbonate 300 mg PO HS 15 Days cap Prazosin [Minipress] 1 mg PO HS 15 Days cap Discontinued LORazepam [Ativan] 0.5 mg PO DAILY PRN 3 Days #3 tab PRN Reason: Anxiety Melatonin 6 mg PO HS 14 Days tablet Divalproex ER [Depakote ER] 500 mg PO HS 14 Days tab Nicotine 21Mg/24Hr Patch [Habitrol] 1 patch TRANSDERM DAILY 14 Days patch Discharge Medication List Norborne Carbonate 300 mg PO HS 15 Days cap 09/23/21 [Rx] Prazosin [Minipress] 1 mg PO HS 15 Days cap 09/23/21 [Rx] Follow up Appointment(s)/Referral(s): [facility] - 09/24/21 12:30 pm (09/24/2021 @ 1:00 PM with Jesu Masterson.) [facility] Ketty [email or web address] [NON-STAFF] - 1 Week Patient Instructions/Handouts: How to Stop Smoking (DC), Depression (DC) Activity/Diet/Wound Care/Special Instructions: Avoid the use of street drugs and alcohol. Take all prescriptions as prescribed. When you are in need of refills on your medications, please contact your medical provider and/or outpatient psychiatrist to have this done. Please go to scheduled outpatient appointment for aftercare treatment. If symptoms return or become worse, call the crisis line at and/or go to the nearest emergency room for evaluation. Discharge Disposition: HOME SELF-CARE
== END 2021-09-23 11:28 | disposition home or self-care (01) | DRG 885 ==
LOC: EC 22:45 → 3MHU 09-22 04:42
PROVIDERS: ADMIT Psychiatry & Neurology Psychiatry; ATTEND Psychiatry & Neurology Psychiatry
DX: F31.81 Bipolar II disorder (principal); R45.851 Suicidal ideations; Z91.14 Patient's other noncompliance with medication regimen; F14.11 Cocaine abuse, in remission; F19.11 Other psychoactive substance abuse, in remission; F84.0 Autistic disorder; F60.3 Borderline personality disorder; F43.10 Post-traumatic stress disorder, unspecified; F17.210 Nicotine dependence, cigarettes, uncomplicated; F90.9 Attention-deficit hyperactivity disorder, unspecified type; Z20.822 Contact with and (suspected) exposure to COVID-19; Z79.899 Other long term (current) drug therapy; Z91.52 Personal history of nonsuicidal self-harm; Z81.3 Family history of other psychoactive substance abuse and dependence
CPT/HCPCS: 80053; 80061; 80306; 82075; 83036; 84443; 85025; 87635; 99285

== ENCOUNTER 2021-11-27 18:22 | Inpatient (IN) | payer MEDICAID, OTHER ==
[2021-11-27] MEDS ORDERED: HALOPERIDOL LACTATE 5 MG/ML 1 ML VIAL IM PRN (18:45)
[2021-11-27] MEDS ORDERED: MAG HYDROX/AL HYDROX/SIMETH 30 ML CUP PO PRN (18:45)
[2021-11-27] MEDS ORDERED: ACETAMINOPHEN TAB 325 MG TAB PO PRN (18:45)
[2021-11-27] MEDS ORDERED: MAGNESIUM HYDROXIDE 2,400 MG/10 ML CUP PO PRN (18:45)
[2021-11-28] MEDS ORDERED: NICOTINE 14MG/24HR PATCH TRANSDERM SCH (09:00)
[2021-11-28] MEDS ORDERED: LORazepam 2 MG/ML INJ IM PRN (11:10)
[2021-11-28] MEDS: NICOTINE 21MG/24HR PATCH TRANSDERM SCH (12:44)
--- NOTE | 2021-11-28 18:29 | P.HP ---
Psychiatric H&P - . H&P Date: 11/28/21 History & Physical: IDENTIFYING DATA: Patient is a single 26 year old male with history of multiple suicide attempts, lives with a roommate. HPI: Patient presented to the hospital as a transfer from [facility] due to suicide attempt on 25 pills of Abilify (10 mg each pill). He reports he researched the Abilify to see what the lethal dose would be and states he knew this was below a "lethal dose". He reports being alive is "exhausting" but is glad to be alive and glad the suicide attempt was unsuccessful. He reports his mood right now is "I'm fine", but objectively appears depressed. He appears to minimize the severity of his suicidal actions and states he was just acting out for attention. Patient denies any suicidal or homicidal ideations, intent or plan. At this time patient denies any auditory or visual hallucinations. No paranoid ideations expressed. Patient denies any flight of ideas racing thoughts and increased in goal directed behavior. He was recently discharged from [facility] in August 2021 on [place]ville 300 mg QHS and Prazosin 1 mg QHS, but he reports he is currently not taking any medications. He reports his roommate tossed out his medications when he was admitted in May 2021 so he claims he does not have any medications at home currently since he overdosed on the Abilify. Patient denies illicit drug or alcohol use. He smokes 1 ppd cigarettes plus vaping. PAST PSYCHIATRIC HISTORY: Diagnosis: Bipolar II disorder, PTSD, Borderline personality disorder Medications: Depakote, [place], Abilify, Prazosin. The patient was discharged on a regimen of Depakote during his last hospitalization or her reports that lithium has been most beneficial for him. Patient was last hospitalized on the psychiatric unit in May 2021 and again in August 2021. He has history of multiple suicide attempts in the past. PMH: denies ALLERGIES: as per EMR CHEMICAL DEPENDENCY HISTORY: Past drug use includes psychedelics, cocaine, mushrooms, marijuna in the past, but none recently. FAMILY PSYCHIATRIC/SUBSTANCE USE HISTORY: Grandmother with mental health problems, mother addicted to opioid pills. SOCIAL HISTORY: Born and raised in [facility] by both parents. Has one older sister. Support system includes his roommate and "myself". Estranged "very" from family. History of childhood trauma "very". Completed few years of college. Never , no children. Lives with roommate. Prefers male romantic partners. Unemployed, lives with roommate for free, is applying for jobs. MENTAL STATUS EXAM: General Appearance: Patient appears to be stated age is alert, dressed in black casual clothing, sanchez, fair hygiene and grooming, tattoos. Behavior: Patient is seated without any agitated behavior. Speech: Patient's speech is fluent and non-pressured. Mood/Affect: Patient reports their mood is "I'm fine", affect is incongruent and labile. Suicidality/Homicidality: Patient denies having any homicidal ideation intent or plan. Denies any suicidal ideations intent or plan. Perceptions: Patient denies any visual hallucinations and denies any auditory hallucinations. Though content/process: There is no evidence of any delusional thought content and thought process is linear and goal-directed. Memory and concentration: AOX3, grossly intact for the purposes of this session. Can spell "WORLD" backwards Judgment and insight: Poor STRENGTHS/WEAKNESSES: strength is that patient is resilient. Weakness is that patient has poor judgment and is impulsive. INTELLECT: Average IMPRESSIONS: Bipolar 2 disorder, depressive episode Borderline personality disorder Posttraumatic stress disorder Tobacco use disorder/Nicotine dependence PLAN: -Patient is admitted under involuntary petition/cert status to [facility] for stabilization of psychiatric symptoms and safety. Patient has signed adult voluntary form and medication consent and is placed in patient's chart. -Medications: Will start patient on Midville 300 mg QHS for mood. -Ativan and Haldol PRN for agitation/aggression -Patient was informed of the risks, benefits and side effects of the medication and patient verbally consented to taking the medications. Patient signed med consent form and was placed in chart. -Internal Medicine consult to perform medical evaluation and physical. -NRT - nicotine patch -SW on board for discharge planning. Encourage patient to participate in groups to work on coping skills. Allergies Allergy/AdvReac Type Severity Reaction Status Date / Time No Known Allergies Allergy Verified 09/21/21 22:50 Vital Signs Temp 97.2 F L 11/28/21 11:26 Pulse 104 H 11/28/21 11:26 Resp 16 11/28/21 11:26 BP 125/82 11/28/21 11:26 Pulse Ox FiO2 Intake & Output 11/27/21 11/28/21 11/28/21 18:59 06:59 18:59 Weight 111.6 kg 111.6 kg 11/28/21 18:00 11/28/21 18:11
[2021-11-28] MEDS: LITHIUM CARBONATE 300 MG CAP PO SCH (20:12)
[2021-11-28] MEDS: LORazepam 1 MG TAB PO PRN (20:12)
[2021-11-29 07:58] LABS: ALT 126 U/L (4-49); AST 77 U/L (17-59); African American GFR (CKD) >90 (>60 ml/min/1.73 sqM); Albumin 4.8 g/dL (3.5-5.0); Alkaline Phosphatase 66 U/L (38-126); Anion Gap 11 mmol/L; Blood Urea Nitrogen 15 mg/dL (9-20); Calcium 9.4 mg/dL (8.4-10.2); Carbon Dioxide 27 mmol/L (22-30); Chloride 105 mmol/L (98-107); Glucose 111 mg/dL (74-99); Non-African American GFR(CKD) 88 (>60 ml/min/1.73 sqM); Potassium 4.7 mmol/L (3.5-5.1); Sodium 143 mmol/L (137-145); Total Bilirubin 0.8 mg/dL (0.2-1.3); Total Protein 7.3 g/dL (6.3-8.2)
[2021-11-29] MEDS: NICOTINE 21MG/24HR PATCH TRANSDERM SCH ×2 (09:49→10:28)
[2021-11-29] MEDS: LORazepam 1 MG TAB PO PRN ×2 (10:58→19:00)
[2021-11-29 11:41] LABS: Chol/HDL Ratio 4.51 Ratio; LDL Cholesterol,Calculated 99.4 mg/dL (0.0-131.0)
[2021-11-29] MEDS: haloperidoL 5 MG TAB PO PRN (19:01)
--- NOTE | 2021-11-29 20:27 | P.PN ---
Progress Note - Text Progress Note Date: 11/29/21 Interval history: Patient was seen resting in his room and was directable and agreeable to speak with verse writer. He rates his mood as "4/10" with 10 being the best mood, depressed. He declines trial of an antidepressant and feels that [place] works the best for him. At this time, patient denies any suicidal or homicidal ideation, intent or plan. Denies any auditory or visual hallucinations. Patient denies any side effects from the medications and has been compliant with meds. He took Ativan 1 mg po x 1 and Haldol 5 mg po x1 earlier today for anxiety/agitation. He inquires about discharge tomorrow and was directed to discuss his treatment with his primary team tomorrow. Mental status exam: General Appearance: Patient appears to be stated age, dressed in black casual clothing, sanchez, fair hygiene and grooming, tattoos. Behavior: Patient is seated without any agitated behavior. Speech: Patient's speech is fluent and non-pressured. Mood/Affect: Patient reports their mood is "4/10", affect is congruent and constricted. Suicidality/Homicidality: Patient denies having any homicidal ideation intent or plan. Denies any suicidal ideations intent or plan. Perceptions: Patient denies any visual hallucinations and denies any auditory hallucinations. Though content/process: There is no evidence of any delusional thought content and thought process is linear and goal-directed. Memory and concentration: AOX3, grossly intact for the purposes of this session. Judgment and insight: improving mildly Assessment/Plan: Continue with current diagnosis. Patient continues to meet criteria for inpatient psychiatric admission for symptom stabilization and safety. Patient will be maintained on current psychotropic medication regimen. Monitor for medication compliance and for any psychotropic medication side effects. Will continue to monitor ongoing response to treatment. Encouraged participation in milieu.
[2021-11-29] MEDS: LITHIUM CARBONATE 300 MG CAP PO SCH (20:30)
[2021-11-30] MEDS: NICOTINE 21MG/24HR PATCH TRANSDERM SCH (07:47)
--- NOTE | 2021-11-30 12:48 | P.PN ---
Progress Note - Text Progress Note Date: 11/30/21 Interval History: Patient was seen wandering the hallways and was directable and agreeable to speak with feature writer in the office. Currently, the patient is not reporting any suicidal or homicidal ideation, intention, and/or plan. He reports that he feels that he does not need inpatient psychiatric care. He states that he has been having a problem with the idea that he is a narcissist. He reports that he has been doing "plenty of soul searching." He is currently not reporting any auditory or visual hallucinations. He is denying any paranoia or other delusions. He has been adherent with his medication and is not reporting any significant side effects. Mental Status Exam: General Appearance: Patient appears to be stated age is alert, directable, and cooperative. Behavior: Patient is calmly seated without any agitated behavior. Speech: Patient's speech is fluent and nonpressured. Mood/Affect: Mood is improving mildly, affect is congruent and constricted. Slightly irritable. Suicidality/Homicidality: Patient denies having any suicidal or homicidal ideation intent or plan. Perceptions: Patient denies any visual hallucinations and denies any auditory hallucinations Though content/process: There is no evidence of any delusional thought content and thought process is linear and goal-directed. Memory and concentration: AOX3, grossly intact for the purposes of this session Judgment and insight: Improving mildly Vital Signs Temp 97.8 F 11/30/21 06:36 Pulse 72 11/30/21 06:36 Resp 16 11/30/21 06:36 BP 101/67 11/30/21 06:36 Pulse Ox 99 11/30/21 06:36 FiO2 Intake & Output 11/29/21 11/30/21 11/30/21 18:59 06:59 18:59 Weight 119.5 kg Assessment Bipolar 2 disorder, depressive episode Borderline personality disorder Posttraumatic stress disorder Tobacco use disorder/Nicotine dependence Plan: -Patient continues to meet criteria for inpatient psychiatric admission for symptom stabilization and safety. Patient has signed adult voluntary form and medication consent and was placed in patient's chart. -Medications: Continue lithium 300 mg daily at bedtime for mood Start Topamax 25 mg by mouth twice a day for off label use for PTSD and mood stability. -When necessary Ativan and Haldol for agitation/aggression. -NRT - nicotine patch -SW on board for discharge planning. Encouraged the patient to participate in milieu.
--- NOTE | 2021-11-30 13:28 | P.CONS ---
History of Present Illness - Reason for Consult Consult date: 11/30/21 - History of Present Illness Patient is a 26-year-old male with PMH of gastric ulcers who is transferred from [facility] for behavioral disturbances. He has been admitted to the mental health unit for further management of symptoms. [facility] has been consulted for medical management this patient. Patient has no complaints today. He denies any headache, lower extremity edema, nausea or vomiting, fever or chills, cough, chest pain, shortness of breath, palpitations, changes in urination or bowel habits. No changes in appetite or weight. He denies any dizziness, numbness/weakness/tingling of the extremities. Patient reports smoking pack of cigarettes daily. He denies any alcohol or illicit drug use Review of systems is performed and is negative except above. General: non toxic, no distress, appears at stated age Derm: warm, dry Head: atraumatic, normocephalic, symmetric Eyes: EOMI, no lid lag, anicteric sclera Cardiovascular: S1S2 reg, no murmur, positive posterior tibial pulse bilateral Lungs: CTA bilateral, no rhonchi, no rales , no accessory muscle use Abdominal: soft, nontender to palpation, no guarding, no appreciable organomegaly Ext: no gross muscle atrophy, no edema, no contractures Neuro: CN II-XI grossly intact, no focal neuro deficits Psych: Alert, oriented, appropriate affect #Gastric ulcer #Transaminitis #Low TSH #Nicotine abuse Patient be started on Protonix 40 mg by mouth daily. Unknown etiology for transaminitis. Total bilirubin is within normal limits. No signs of obstruction. Continue to monitor. TSH of 0.294. Obtain free T4. Patient has been offered a nicotine patch. Thank you for this consultation. Please call [facility] with additional questions or concerns. Past Medical History Additional Past Medical History / Comment(s): THROAT ABSCESS History of Any Multi-Drug Resistant Organisms: None Reported Past Surgical History: No Surgical Hx Reported Past Anesthesia/Blood Transfusion Reactions: No Reported Reaction Additional Past Anesthesia/Blood Transfusion Reaction / Comm: FIRST ANSTHETIC Past Psychological History: No Psychological Hx Reported Smoking Status: Current every day smoker Past Alcohol Use History: Occasional Additional Past Alcohol Use History / Comment(s): STARTED SMOKING AT AGE 16 SMOKES 1/2PPD Past Drug Use History: Cocaine - Past Family History Mother Family Medical History: No Reported History Medications and Allergies Home Medications Medication Instructions Recorded Confirmed Type [place] Carbonate 300 mg PO HS 15 Days cap 09/23/21 Rx Prazosin [Minipress] 1 mg PO HS 15 Days cap 09/23/21 Rx Allergies Allergy/AdvReac Type Severity Reaction Status Date / Time No Known Allergies Allergy Verified 09/21/21 22:50 Physical Exam Vitals: Vital Signs Temp Pulse Resp BP Pulse Ox 11/30/21 06:36 97.8 F 72 16 101/67 99 Results CBC & Chem 7: 11/29/21 07:20
[2021-11-30] MEDS: LORazepam 1 MG TAB PO PRN (16:20)
[2021-11-30] MEDS: haloperidoL 5 MG TAB PO PRN (18:53)
[2021-11-30] MEDS: LITHIUM CARBONATE 300 MG CAP PO SCH (21:00)
[2021-11-30] MEDS: TOPIRAMATE 25 MG TAB PO SCH (21:00)
[2021-12-01 06:33] LABS: T4, Free (Free Thyroxine) 1.16 ng/dL (0.800-1.800)
[2021-12-01 06:55] VITALS: BP 117/59; PULSE 91; RESP 18; TEMP 96.7
[2021-12-01] MEDS ORDERED: PANTOPRAZOLE 40 MG TABLET PO SCH (07:30)
[2021-12-01] MEDS: TOPIRAMATE 25 MG TAB PO SCH (08:02)
[2021-12-01] MEDS: NICOTINE 21MG/24HR PATCH TRANSDERM SCH (08:02)
--- NOTE | 2021-12-01 11:37 | P.DS ---
Providers Date of admission: 11/28/21 10:50 Expected date of discharge: 12/01/21 Attending physician: Miguel Donaldson MD Consults: 11/27/21 18:45 Consult Physician Routine Consulting Provider: Parrish Frye Consult Reason/Comments: H and P Do you want consulting provider notified?: Yes Primary care physician: Stated None - Discharge Diagnosis(es) (1) Bipolar 2 disorder, major depressive episode Status: Acute Priority: High (2) Borderline personality disorder Status: Chronic Priority: Medium (3) PTSD (post-traumatic stress disorder) Status: Chronic Priority: Medium (4) Nicotine dependence Status: Chronic Priority: Medium Hospital Course: Admission HPI: Patient is a single 26 year old male with history of multiple suicide attempts, lives with a roommate. Patient presented to the hospital as a transfer from [facility] due to suicide attempt on 25 pills of Abilify (10 mg each pill). He reports he researched the Abilify to see what the lethal dose would be and states he knew this was below a "lethal dose". He reports being alive is "exhausting" but is glad to be alive and glad the suicide attempt was unsuccessful. He reports his mood right now is "I'm fine", but objectively appears depressed. He appears to minimize the severity of his suicidal actions and states he was just acting out for attention. Patient denies any suicidal or homicidal ideations, intent or plan. At this time patient denies any auditory or visual hallucinations. No paranoid ideations expressed. Patient denies any flight of ideas racing thoughts and increased in goal directed behavior. He was recently discharged from [facility] in August 2021 on Arcata 300 mg QHS and Prazosin 1 mg QHS, but he reports he is currently not taking any medications. He reports his roommate tossed out his medications when he was admitted in May 2021 so he claims he does not have any medications at home currently since he overdosed on the Abilify. Patient denies illicit drug or alcohol use. He smokes 1 ppd cigarettes plus vaping. Diagnosis: Bipolar II disorder, PTSD, Borderline personality disorder Medications: Depakote, Arcata, Abilify, Prazosin. The patient was discharged on a regimen of Depakote during his last hospitalization or her reports that lithium has been most beneficial for him. Patient was last hospitalized on the psychiatric unit in May 2021 and again in August 2021. He has history of multiple suicide attempts in the past. Hospital course: Upon admission to the unit patient was initially reporting that he was fine although appeared to be labile. Patient was however directable and agreeable to commence treatment. Patient got along well with other patients on the unit and followed unit protocol. Patient was compliant with the medications and denied any side effects throughout hospital course. The patient was started on lithium and Topamax. The patient did endorse significant cluster B personality traits and symptoms such as narcissism, borderline personality traits, sociopathy, and histrionics. Despite this, the patient engaged inappropriate conduct with staff and peers. On the day of discharge, the patient is not reporting any suicidal or homicidal ideation, intention, and/or plan. He is not reporting any auditory or visual hallucinations. He denies any paranoia or other delusions. The patient has been adherent with his medication is not reporting any significant side effects. The patient is denying any access to firearms other weapons. He is future and goal oriented. Patient was counseled at length and the points medication adherence appropriate outpatient follow-up. The patient does not have a significant history of substance abuse however was counseled on abstaining from all substances including alcohol, tobacco, and marijuana. Prior to discharge, family meeting was arranged by nursing home social worker to answer questions and ensure safety. The patient is currently enrolled in dialectical behavioral therapy and was encouraged to continue with his outpatient treatment and intensive therapy sessions. Mental status exam: General Appearance: Patient appears to be stated age is alert, pleasant, and cooperative. Patient is in no acute distress and has fair hygiene and grooming Behavior: Patient is calmly seated without any agitated behavior. Speech: Patient's speech is fluent and nonpressured. Mood/Affect: Patient reports their mood is "much better", affect is congruent and euthymic but irritable. Suicidality/Homicidality: Patient denies having any suicidal or homicidal ideation intent or plan. Perceptions: Patient denies any auditory or visual hallucinations. Though content/process: There is no evidence of any delusional thought content and thought process is linear and goal-directed. Patient is future-oriented. Memory and concentration: AOX3, grossly intact for the purposes of this session. Can spell "WORLD" backwards correctly. Judgment and insight: Improved with guarded prognosis Impression: Bipolar 2 disorder, depressive episode Borderline personality disorder Posttraumatic stress disorder Tobacco use disorder/Nicotine dependence Plan: -Continue with discharge today as patient has improved and stabilized psychiatrically and is not currently an imminent threat to himself and/or others. Patient will remain at chronically elevated risk for harm to self and/or others due to his impulsivity and lack of coping skills. -Continue medications: [place] Carbonate 300 mg at bedtime Topamax 25 mg twice daily for mood stabilization. Prazosin 1 mg at bedtime. -Patient was counseled on the need for medication compliance and appropriate follow-up at mental health and also primary care for medical issues. Patient verbalized understanding and agreed. -Social work to arrange for and conduct family meeting to ensure safety upon discharge and answer any questions/concerns. Social work also to arrange for patients follow up appointments [facility] for [facility] care along with follow up with primary care provider. -Patient counseled on abstaining from recreational drugs and marijuana and alcohol. Was informed/educated on the adverse effects on their physical and mental health. Patient verbally agreed and understood. -Patient was instructed to return to the hospital or seek immediate medical care if their psychiatric or medical symptoms do worsen or reoccur. -Psychoeducation and supportive therapy provided to patient. Risks and benefits of pharmacological treatment versus the risks and benefits of nontreatment weight and discussed. Informed consent discussion held. Common side effects of psychotropics discussed such as, but not limited to headache, GI disturbance, sexual dysfunction, movement disorders, sedation, and orthostatic hypotension. Life threatening and blackbox warnings of prescribed medications also discussed. Potential risks of operating a vehicle or heavy machinery discussed with patient at length. Advised on importance of compliance and a reliable and responsible manner. Patient advised to review FDA consumer labeling of all medications prior to taking. Patient verbalized understanding of potential risks, and agrees with current treatment plan. Patient advised to medically contact physician/emergency personnel if any acute changes in condition occur. Vital Signs Temp 96.7 F L 12/01/21 06:00 Pulse 91 12/01/21 06:00 Resp 18 12/01/21 06:00 BP 117/59 12/01/21 06:00 Pulse Ox 98 12/01/21 06:00 FiO2 Laboratory Results Sodium 143 mmol/L (137-145) 11/29/21 07:20 Potassium 4.7 mmol/L (3.5-5.1) 11/29/21 07:20 Chloride 105 mmol/L (98-107) 11/29/21 07:20 Carbon Dioxide 27 mmol/L (22-30) 11/29/21 07:20 Anion Gap 11 mmol/L 11/29/21 07:20 BUN 15 mg/dL (9-20) 11/29/21 07:20 Creatinine 1.15 mg/dL (0.66-1.25) 11/29/21 07:20 Est GFR (CKD-EPI)AfAm >90 (>60 ml/min/1.73 sqM) 11/29/21 07:20 Est GFR (CKD-EPI)NonAf 88 (>60 ml/min/1.73 sqM) 11/29/21 07:20 Glucose 111 mg/dL (74-99) H 11/29/21 07:[address] Glu mg/dL 111 11/29/21 07:20 Hemoglobin A1c 5.5 % (0.0-6.0) 11/29/21 07:20 Calcium 9.4 mg/dL (8.4-10.2) 11/29/21 07:20 Total Bilirubin 0.8 mg/dL (0.2-1.3) 11/29/21 07:20 AST 77 U/L (17-59) H 11/29/21 07:20 ALT 126 U/L (4-49) H 11/29/21 07:20 Alkaline Phosphatase 66 U/L (38-126) 11/29/21 07:20 Total Protein 7.3 g/dL (6.3-8.2) 11/29/21 07:20 Albumin 4.8 g/dL (3.5-5.0) 11/29/21 07:20 Triglycerides 149.00 mg/dL (0.00-149.00) 11/29/21 07:20 Cholesterol 166.00 mg/dL (0.00-200.00) 11/29/21 07:20 LDL Cholesterol, Calc 99.4 mg/dL (0.0-131.0) 11/29/21 07:20 VLDL Cholesterol, Calc 29.80 mg/dL (5.00-40.00) 11/29/21 07:20 HDL Cholesterol 36.80 mg/dL (40.00-60.00) L 11/29/21 07:20 Cholesterol/HDL Ratio 4.51 Ratio 11/29/21 07:20 TSH 0.294 mIU/L (0.465-4.680) L 11/29/21 07:20 Free T4 1.160 ng/dL (0.800-1.800) 11/29/21 07:20 Free T3 pg/mL 3.20 pg/mL (2.30-4.20) 11/29/21 07:20 Allergies Allergy/AdvReac Type Severity Reaction Status Date / Time No Known Allergies Allergy Verified 09/21/21 22:50 Patient Condition at Discharge: Stable Plan - Discharge Summary Discharge Rx Participant: No New Discharge Prescriptions: New [place] Carbonate 300 mg PO HS 30 Days cap Topiramate [Topamax] 25 mg PO BID 30 Days tab Continue Prazosin [Minipress] 1 mg PO HS 15 Days cap Discontinued [place] Carbonate 300 mg PO HS 15 Days cap Discharge Medication List Prazosin [Minipress] 1 mg PO HS 15 Days cap 09/23/21 [Rx] [place] Carbonate 300 mg PO HS 30 Days cap 12/01/21 [Rx] Topiramate [Topamax] 25 mg PO BID 30 Days tab 12/01/21 [Rx] Follow up Appointment(s)/Referral(s): [facility] [Outside] - 12/03/21 1:00 pm (Jesu) [facility] [NON-STAFF] - 1 Week Patient Instructions/Handouts: Bipolar Disorder (DC), Post Traumatic Stress Disorder (DC) Activity/Diet/Wound Care/Special Instructions: Avoid the use of street drugs and alcohol. Take all prescriptions as prescribed. When you are in need of refills on your medications, please contact your medical provider and/or outpatient psychiatrist to have this done. Please go to scheduled outpatient appointment for aftercare treatment. If symptoms return or become worse, call the crisis line at and/or go to the nearest emergency room for evaluation. Discharge Disposition: HOME SELF-CARE
== END 2021-12-01 10:32 | disposition home or self-care (01) | DRG 885 ==
LOC: 3MHU 11-28 10:50
PROVIDERS: ADMIT Psychiatry & Neurology Psychiatry; ATTEND Psychiatry & Neurology Psychiatry
DX: F31.81 Bipolar II disorder (principal); R45.851 Suicidal ideations; F17.210 Nicotine dependence, cigarettes, uncomplicated; F43.10 Post-traumatic stress disorder, unspecified; R74.01 Elevation of levels of liver transaminase levels; K25.9 Gastric ulcer, unspecified as acute or chronic, without hemorrhage or perforation; F60.3 Borderline personality disorder; Z79.899 Other long term (current) drug therapy; Z87.11 Personal history of peptic ulcer disease; Z91.51 Personal history of suicidal behavior; Z71.6 Tobacco abuse counseling
CPT/HCPCS: 80053; 80061; 83036; 84439; 84443; 84481

== ENCOUNTER 2021-12-15 13:40 | Emergency (ER) | payer OTHER ==
[2021-12-15 14:03] VITALS: RESP 18; TEMP 98.1
[2021-12-15 16:12] LABS: Amphetamine Screen,Urine Not Detected (NotDetected); Barbiturate Screen,Urine Not Detected (NotDetected); Benzodiazepines Screen,Urine Not Detected (NotDetected); Cocaine Screen,Urine Not Detected (NotDetected); Methadone Screen, Urine Not Detected (NotDetected); Opiate Screen,Urine Not Detected (NotDetected); Oxycodone Screen, Urine Not Detected (NotDetected); Phencyclidine Screen,Urine Not Detected (NotDetected); Tricyclic Antidepressant,Urine Not Detected (NotDetected); Urn Cannabinoid Scrn Not Detected (NotDetected)
--- NOTE | 2021-12-15 16:29 | ED ---
General Adult HPI - General Chief complaint: Psychiatric Symptoms Stated complaint: mental health Time Seen by Provider: 12/15/21 14:05 Source: patient, RN notes reviewed, old records reviewed Mode of arrival: ambulatory Limitations: no limitations - History of Present Illness Initial comments: This is a 26-year-old male presents emergency Department stating he's having some suicidal ideations and he comes into the emergency department to be admitted because he has been admitted 3 other times in the past for the same thing. Patient states she's been taking some Benadryl but he told his friend to take as his friends stopped him and sent him to the ER. Patient denies any drinking or drug use. Patient denies any physical complaints today. Patient denies any particular incident that made her more depressed such that he wants to harm himself. - Related Data Previous Rx's Medication Instructions Recorded Prazosin [Minipress] 1 mg PO HS 15 Days cap 09/23/21 [place] Carbonate 300 mg PO HS 30 Days cap 12/01/21 Topiramate [Topamax] 25 mg PO BID 30 Days tab 12/01/21 Allergies Allergy/AdvReac Type Severity Reaction Status Date / Time No Known Allergies Allergy Verified 12/15/21 15:43 Review of Systems ROS Statement: Those systems with pertinent positive or pertinent negative responses have been documented in the HPI. ROS Other: All systems not noted in ROS Statement are negative. Past Medical History Additional Past Medical History / Comment(s): THROAT ABSCESS History of Any Multi-Drug Resistant Organisms: None Reported Past Surgical History: Tonsillectomy Past Anesthesia/Blood Transfusion Reactions: No Reported Reaction Additional Past Anesthesia/Blood Transfusion Reaction / Comment(s): FIRST ANSTHETIC Past Psychological History: No Psychological Hx Reported Smoking Status: Current every day smoker Past Alcohol Use History: Occasional Past Drug Use History: Cocaine - Past Family History Mother Family Medical History: No Reported History General Exam - General Exam Comments Initial Comments: GENERAL: Patient is well-developed and well-nourished. Patient is nontoxic and well- hydrated and is in no acute distress. ENT: Neck is soft and supple. No significant lymphadenopathy is noted. Oropharynx is clear. Moist mucous membranes. Neck has full range of motion without eliciting any pain. EYES: The sclera were anicteric and conjunctiva were pink and moist. Extraocular movements were intact and pupils were equal round and reactive to light. Eyelids were unremarkable. PULMONARY: Unlabored respirations. Good breath sounds bilaterally. No audible rales rhonchi or wheezing was noted. CARDIOVASCULAR: There is a regular rate and rhythm without any murmurs gallops or rubs. SKIN: Skin is clear with no lesions or rashes and otherwise unremarkable. NEUROLOGIC: Patient is alert and oriented x3. Cranial nerves II through XII are grossly intact. Motor and sensory are also intact. Normal speech, volume and content. Symmetrical smile. MUSCULOSKELETAL: Normal extremities with adequate strength and full range of motion. PSYCHIATRIC: Patient states he is depressed and has had some suicidal thoughts Limitations: no limitations Course Vital Signs 12/15/21 13:59 Temperature 98.1 F Pulse Rate 98 Respiratory 18 Rate Blood Pressure 133/82 O2 Sat by Pulse 97 Oximetry Medical Decision Making - Medical Decision Making EPS came and evaluated the patient and determined that the patient had not followed up on any of his previous visits and so they again gave him appropriate follow-up and discharge the patient home. Patient did agree to be safe and agreed that he could be safe. - Lab Data Lab Results 12/15/21 12/15/21 Range/Units 15:49 15:49 Urine Opiates Screen Not Detected (NotDetected) Ur Oxycodone Screen Not Detected (NotDetected) Urine Methadone Screen Not Detected (NotDetected) Ur Propoxyphene Screen Not Detected (NotDetected) Ur Barbiturates Screen Not Detected (NotDetected) U Tricyclic Antidepress Not Detected (NotDetected) Ur Phencyclidine Scrn Not Detected (NotDetected) Ur Amphetamines Screen Not Detected (NotDetected) U Methamphetamines Scrn Not Detected (NotDetected) U Benzodiazepines Scrn Not Detected (NotDetected) Urine Cocaine Screen Not Detected (NotDetected) U Marijuana (THC) Screen Not Detected (NotDetected) Coronavirus (PCR) Not Detected (Not Detectd) Disposition Clinical Impression: Depression Disposition: HOME SELF-CARE Is patient prescribed a controlled substance at d/c from ED?: No Referrals: None,Stated [Primary Care Provider] - 1-2 days Time of Disposition: 16:30
[2021-12-15 17:06] VITALS: BP 134/87; PULSE 89
== END 2021-12-15 16:56 | disposition home or self-care (01) ==
LOC: EC 13:40
DX: F32.A Depression, unspecified (principal); F17.200 Nicotine dependence, unspecified, uncomplicated; F14.90 Cocaine use, unspecified, uncomplicated; Z20.822 Contact with and (suspected) exposure to COVID-19
CPT/HCPCS: 80306; 82075; 87635; 99284

== ENCOUNTER 2022-02-01 06:35 | Inpatient (IN) | payer MEDICAID, OTHER ==
[2022-02-01] MEDS ORDERED: SODIUM CHLORIDE 0.9% 1,000 ML IV STA (06:47)
[2022-02-01 07:15] LABS: Basophils % (A) 1 %; Eosinophils # (A) 0.2 k/uL (0-0.7); Eosinophils % (A) 4 %; HCT 44.7 % (39.0-53.0); HGB 15.8 gm/dL (13.0-17.5); Lymphocytes # (A) 1.5 k/uL (1.0-4.8); Lymphocytes % (A) 35 %; MCH 32.2 pg (25.0-35.0); MCHC 35.4 g/dL (31.0-37.0); MCV 90.9 fL (80.0-100.0); Mean Platelet Volume 7.5; Monocytes # (A) 0.2 k/uL (0-1.0); Monocytes % (A) 4 %; Neutrophils # (A) 2.2 k/uL (1.3-7.7); Neutrophils % (A) 54 %; Platelet Count 260 k/uL (150-450); RBC 4.92 m/uL (4.30-5.90); RDW 12.7 % (11.5-15.5); WBC 4.1 k/uL (3.8-10.6)
[2022-02-01 07:28] LABS: ALT 179 U/L (4-49); AST 75 U/L (17-59); Acetaminophen <10.0 ug/mL; African American GFR (CKD) >90 (>60 ml/min/1.73 sqM); Alcohol <10 mg/dL; Alkaline Phosphatase 78 U/L (38-126); Anion Gap 10 mmol/L; Blood Urea Nitrogen 14 mg/dL (9-20); Calcium 9.3 mg/dL (8.4-10.2); Carbon Dioxide 25 mmol/L (22-30); Chloride 107 mmol/L (98-107); Glucose 107 mg/dL (74-99); Non-African American GFR(CKD) >90 (>60 ml/min/1.73 sqM); Potassium 3.9 mmol/L (3.5-5.1); Salicylate <1.0 mg/dL; Sodium 142 mmol/L (137-145); Total Bilirubin 0.7 mg/dL (0.2-1.3); Total Protein 7.9 g/dL (6.3-8.2)
--- NOTE | 2022-02-01 07:40 | ED ---
Overdose HPI - General Chief Complaint: Overdose Stated Complaint: Overdose Time Seen by Provider: 02/01/22 06:45 Source: patient, RN notes reviewed Mode of arrival: ambulatory Limitations: no limitations - History of Present Illness Initial Comments: This is a 27-year-old male presents emergency Department chief complaint of drug overdose. Patient states is depressed, suicidal. Patient states he takes one box of Benadryl which he believes was 24 tablets. Patient states he slightly tight he states he took this one hour prior arrival. Patient denies any other drug intake denies any drug abuse denies alcohol intake. Patient states she is non-no prescription medications he has not discussed this with therapists or psychiatrist. Denies any physical harm otherwise. Patient offers no other complaints. - Related Data Home Medications Medication Instructions Recorded Confirmed No Known Home Medications 02/01/22 02/01/22 Allergies Allergy/AdvReac Type Severity Reaction Status Date / Time No Known Allergies Allergy Verified 02/01/22 06:43 Review of Systems ROS Statement: Those systems with pertinent positive or pertinent negative responses have been documented in the HPI. ROS Other: All systems not noted in ROS Statement are negative. Past Medical History Additional Past Medical History / Comment(s): THROAT ABSCESS, BPD History of Any Multi-Drug Resistant Organisms: None Reported Past Surgical History: Tonsillectomy Past Anesthesia/Blood Transfusion Reactions: No Reported Reaction Additional Past Anesthesia/Blood Transfusion Reaction / Comment(s): FIRST ANSTHETIC Past Psychological History: Anxiety, Bipolar, Depression Smoking Status: Current every day smoker Past Alcohol Use History: Occasional Past Drug Use History: Cocaine - Past Family History Mother Family Medical History: No Reported History General Exam Limitations: no limitations General appearance: alert, in no apparent distress Head exam: Present: atraumatic, normocephalic, normal inspection Eye exam: Present: normal appearance, PERRL, EOMI. Absent: scleral icterus, conjunctival injection, periorbital swelling ENT exam: Present: normal exam, normal oropharynx, mucous membranes moist Neck exam: Present: normal inspection, full ROM. Absent: tenderness, me ningismus, lymphadenopathy Respiratory exam: Present: normal lung sounds bilaterally. Absent: respiratory distress, wheezes, rales, rhonchi, stridor Cardiovascular Exam: Present: regular rate, normal rhythm, normal heart sounds. Absent: systolic murmur, diastolic murmur, rubs, gallop, clicks GI/Abdominal exam: Present: soft, normal bowel sounds. Absent: distended, tenderness, guarding, rebound, rigid Neurological exam: Present: alert, oriented X3, CN II-XII intact Psychiatric exam: Present: depressed Skin exam: Present: warm, dry, intact, normal color. Absent: rash Course Vital Signs 02/01/22 06:41 Temperature 97.9 F Pulse Rate 88 Respiratory 18 Rate Blood Pressure 140/95 O2 Sat by Pulse 98 Oximetry Medical Decision Making - Medical Decision Making Patient was evaluated by EPS case discussed with psychiatrist patient will be admitted for psychiatric treatment. - Lab Data Result diagrams: 02/01/22 07:03 02/01/22 07:03 Lab Results 02/01/22 02/01/22 02/01/22 Range/Units 07:03 07:03 09:57 WBC 4.1 (3.8-10.6) k/uL RBC 4.92 (4.30-5.90) m/uL Hgb 15.8 (13.0-17.5) gm/dL Hct 44.7 (39.0-53.0) % MCV 90.9 (80.0-100.0) fL MCH 32.2 (25.0-35.0) pg MCHC 35.4 (31.0-37.0) g/dL RDW 12.7 (11.5-15.5) % Plt Count 260 (150-450) k/uL MPV 7.5 Neutrophils % 54 % Lymphocytes % 35 % Monocytes % 4 % Eosinophils % 4 % Basophils % 1 % Neutrophils # 2.2 (1.3-7.7) k/uL Lymphocytes # 1.5 (1.0-4.8) k/uL Monocytes # 0.2 (0-1.0) k/uL Eosinophils # 0.2 (0-0.7) k/uL Basophils # 0.0 (0-0.2) k/uL Sodium 142 (137-145) mmol/L Potassium 3.9 (3.5-5.1) mmol/L Chloride 107 (98-107) mmol/L Carbon Dioxide 25 (22-30) mmol/L Anion Gap 10 mmol/L BUN 14 (9-20) mg/dL Creatinine 1.05 (0.66-1.25) mg/dL Est GFR (CKD-EPI)AfAm >90 (>60 ml/min/1.73 sqM) Est GFR (CKD-EPI)NonAf >90 (>60 ml/min/1.73 sqM) Glucose 107 H (74-99) mg/dL Calcium 9.3 (8.4-10.2) mg/dL Total Bilirubin 0.7 (0.2-1.3) mg/dL AST 75 H (17-59) U/L ALT 179 H (4-49) U/L Alkaline Phosphatase 78 (38-126) U/L Total Protein 7.9 (6.3-8.2) g/dL Albumin 5.0 (3.5-5.0) g/dL Urine Color Urine Appearance (Clear) Urine pH (5.0-8.0) Ur Specific [place] (1.001-1.035) Urine Protein (Negative) Urine Glucose (UA) (Negative) Urine Ketones (Negative) Urine Blood (Negative) Urine Nitrite (Negative) Urine Bilirubin (Negative) Urine Urobilinogen (<2.0) mg/dL Ur Leukocyte Esterase (Negative) Salicylates <1.0 mg/dL Urine Opiates Screen Not Detected (NotDetected) Ur Oxycodone Screen Not Detected (NotDetected) Urine Methadone Screen Not Detected (NotDetected) Ur Propoxyphene Screen Not Detected (NotDetected) Acetaminophen <10.0 ug/mL Ur Barbiturates Screen Not Detected (NotDetected) U Tricyclic Antidepress Not Detected (NotDetected) Ur Phencyclidine Scrn Not Detected (NotDetected) Ur Amphetamines Screen Not Detected (NotDetected) U Methamphetamines Scrn Not Detected (NotDetected) U Benzodiazepines Scrn Not Detected (NotDetected) Urine Cocaine Screen Not Detected (NotDetected) U Marijuana (THC) Screen Not Detected (NotDetected) Serum Alcohol <10 mg/dL Coronavirus (PCR) (Not Detectd) 02/01/22 02/01/22 Range/Units 09:57 10:01 WBC (3.8-10.6) k/uL RBC (4.30-5.90) m/uL Hgb (13.0-17.5) gm/dL Hct (39.0-53.0) % MCV (80.0-100.0) fL MCH (25.0-35.0) pg MCHC (31.0-37.0) g/dL RDW (11.5-15.5) % Plt Count (150-450) k/uL MPV Neutrophils % % Lymphocytes % % Monocytes % % Eosinophils % % Basophils % % Neutrophils # (1.3-7.7) k/uL Lymphocytes # (1.0-4.8) k/uL Monocytes # (0-1.0) k/uL Eosinophils # (0-0.7) k/uL Basophils # (0-0.2) k/uL Sodium (137-145) mmol/L Potassium (3.5-5.1) mmol/L Chloride (98-107) mmol/L Carbon Dioxide (22-30) mmol/L Anion Gap mmol/L BUN (9-20) mg/dL Creatinine (0.66-1.25) mg/dL Est GFR (CKD-EPI)AfAm (>60 ml/min/1.73 sqM) Est GFR (CKD-EPI)NonAf (>60 ml/min/1.73 sqM) Glucose (74-99) mg/dL Calcium (8.4-10.2) mg/dL Total Bilirubin (0.2-1.3) mg/dL AST (17-59) U/L ALT (4-49) U/L Alkaline Phosphatase (38-126) U/L Total Protein (6.3-8.2) g/dL Albumin (3.5-5.0) g/dL Urine Color Light Yellow Urine Appearance Clear (Clear) Urine pH 7.0 (5.0-8.0) Ur Specific [place] 1.010 (1.001-1.035) Urine Protein Negative (Negative) Urine Glucose (UA) Negative (Negative) Urine Ketones Negative (Negative) Urine Blood Negative (Negative) Urine Nitrite Negative (Negative) Urine Bilirubin Negative (Negative) Urine Urobilinogen <2.0 (<2.0) mg/dL Ur Leukocyte Esterase Negative (Negative) Salicylates mg/dL Urine Opiates Screen (NotDetected) Ur Oxycodone Screen (NotDetected) Urine Methadone Screen (NotDetected) Ur Propoxyphene Screen (NotDetected) Acetaminophen ug/mL Ur Barbiturates Screen (NotDetected) U Tricyclic Antidepress (NotDetected) Ur Phencyclidine Scrn (NotDetected) Ur Amphetamines Screen (NotDetected) U Methamphetamines Scrn (NotDetected) U Benzodiazepines Scrn (NotDetected) Urine Cocaine Screen (NotDetected) U Marijuana (THC) Screen (NotDetected) Serum Alcohol mg/dL Coronavirus (PCR) Not Detected (Not Detectd) - EKG Data -: EKG Interpreted by Me EKG Comments: EKG performed at 6:55 sinus rhythm rate of 81 AR 142 QRS 107 QT/QTC 360/401 Disposition Clinical Impression: Drug overdose, Depression, Suicidal ideation Disposition: TRANSFER TO PSYCH HOSP/UNIT Referrals: None,Stated [Primary Care Provider] - 1-2 days Time of Disposition: 11:38
[2022-02-01 10:40] LABS: Appearance,Urine Clear (Clear); Bilirubin,Urine Negative (Negative); Blood,Urine Negative (Negative); Color,Urine Light Yellow; Glucose,Urine (UA) Negative (Negative); Ketones,Urine Negative (Negative); Leukocyte Esterase,Urine Negative (Negative); Nitrite,Urine Negative (Negative); Protein,Urine Negative (Negative); Urobilinogen,Urine <2.0 mg/dL (<2.0)
[2022-02-01 10:52] LABS: Amphetamine Screen,Urine Not Detected (NotDetected); Barbiturate Screen,Urine Not Detected (NotDetected); Benzodiazepines Screen,Urine Not Detected (NotDetected); Cocaine Screen,Urine Not Detected (NotDetected); Methadone Screen, Urine Not Detected (NotDetected); Opiate Screen,Urine Not Detected (NotDetected); Oxycodone Screen, Urine Not Detected (NotDetected); Phencyclidine Screen,Urine Not Detected (NotDetected); Tricyclic Antidepressant,Urine Not Detected (NotDetected); Urn Cannabinoid Scrn Not Detected (NotDetected)
[2022-02-01] MEDS ORDERED: MAGNESIUM HYDROXIDE 2,400 MG/10 ML CUP PO PRN (13:49)
[2022-02-01] MEDS ORDERED: MAG HYDROX/AL HYDROX/SIMETH 355 ML BOTTLE PO PRN (13:49)
[2022-02-01] MEDS ORDERED: ACETAMINOPHEN TAB 325 MG TAB PO PRN (13:49)
[2022-02-01] MEDS ORDERED: HALOPERIDOL LACTATE 5 MG/ML 1 ML VIAL IM PRN (13:49)
[2022-02-01] MEDS ORDERED: LORazepam 2 MG/ML INJ IM PRN (13:51)
[2022-02-01] MEDS ORDERED: haloperidoL 5 MG TAB PO PRN (13:52)
[2022-02-01] MEDS: NICOTINE 14MG/24HR PATCH TRANSDERM SCH (15:41)
--- NOTE | 2022-02-01 16:05 | P.HPMEDMHU ---
History of Present Illness H&P Date: 02/01/22 Chief Complaint: SI Patient is a 27-year-old with history of depression and prior suicidal attempts presenting with worsening depression and intentional Benadryl overdose. [facility] has been consulted for medical management. He claims that he took a bout 24 tablets of Benadryl. He had 2 bouts of emesis overall, and now his nausea is resolved. He denies any chest pain, shortness of breath, abdominal pain, diarrhea, constipation, or urinary complaints. Patient seen and examined at bedside. Pertinent positives and negatives as discussed in HPI, a complete review of systems was performed and all other systems are negative. Vital signs reviewed General: nontoxic, no distress, appears at stated age Derm: warm, dry Head: atraumatic, normocephalic, symmetric Eyes: EOMI, no lid lag, anicteric sclera, pupils equal round reactive to light ENT: Nose and ears atraumatic Neck: No thyromegaly, supple Mouth: no lip lesion, mucus membranes moist Cardiovascular: S1S2 reg, no murmur, no edema Lungs: clear to auscultation bilateral, no rhonchi, no rales, no wheeze, no accessory muscle use Abdominal: soft, nontender to palpation, no guarding, no appreciable organomegaly Ext: no gross muscle atrophy, muscle strength muscle strength 5 out of 5 in all 4 extremities, no contractures Neuro: CN II-XII grossly intact Psych: Alert, oriented, appropriate affect Assessment/Plan: Depression Intentional Benadryl overdose Suicidal ideations -Management per psychiatry - s/p IV fluids Mild transaminitis -Likely related to drug toxicity -Denies any abdominal pain No reported chronic medical problems -Routine labs pending Thank you for allowing us to participate in the care of this pleasant patient. Do not hesitate to contact us with questions. Someone can be reached from the [facility] hospitalist group all hours of the day at [phone] or via [employer]. Past Medical History Additional Past Medical History / Comment(s): THROAT ABSCESS, BPD History of Any Multi-Drug Resistant Organisms: None Reported Past Surgical History: No Surgical Hx Reported, Tonsillectomy Past Anesthesia/Blood Transfusion Reactions: No Reported Reaction Additional Past Anesthesia/Blood Transfusion Reaction / Comment(s): FIRST ANSTHETIC Past Psychological History: Anxiety, Bipolar, Depression Smoking Status: Current every day smoker Past Alcohol Use History: Occasional Additional Past Alcohol Use History / Comment(s): STARTED SMOKING AT AGE 16 SMOKES 1/2PPD Past Drug Use History: Cocaine - Past Family History Mother Family Medical History: No Reported History Medications and Allergies Home Medications Medication Instructions Recorded Confirmed Type No Known Home Medications 02/01/22 02/01/22 History Allergies Allergy/AdvReac Type Severity Reaction Status Date / Time No Known Allergies Allergy Verified 02/01/22 06:43 Physical Exam Vitals: Vital Signs Temp Pulse Resp BP BP Pulse Ox 02/01/22 14:23 97.0 F L 20 129/76 02/01/22 14:16 97.1 F L 78 18 120/79 96 02/01/22 10:50 97.8 F 72 18 138/82 99 02/01/22 06:41 97.9 F 88 18 140/95 98 Intake and Output 02/01/22 02/01/22 02/01/22 06:59 14:59 22:59 Other: Weight 117.934 kg 117.934 kg Cranial Nerve Examination - Cranial Nerves Cranial Nerve II- Optic: Intact Cranial Nerve III- Oculomotor: Intact Cranial Nerve IV- Trochlear: Intact Cranial Nerve V- Trigeminal: Intact Cranial Nerve - Abducens: Intact Cranial Nerve VII- Facial: Intact Cranial Nerve VIII- Auditory: Intact Cranial Nerve IX- Glossopharyngeal: Intact Cranial Nerve X- Vagus: Intact Cranial Nerve XI- Accessory: Intact Cranial Nerve XII- Hypoglossal: Intact Results CBC & Chem 7: 02/01/22 07:03 02/01/22 07:03 Labs: Abnormal Lab Results - Last 24 Hours (Table) 02/01/22 Range/Units 07:03 Glucose 107 H (74-99) mg/dL AST 75 H (17-59) U/L ALT 179 H (4-49) U/L Thrombosis Risk Factor Assmnt - Choose All That Apply Any of the Below Risk Factors Present?: No Other Risk Factors: No Other congenital or acquired thrombophilia - If yes, enter type in comment: No Thrombosis Risk Factor Assessment Level: Very Low Risk
[2022-02-02] MEDS: NICOTINE 14MG/24HR PATCH TRANSDERM SCH (09:33)
[2022-02-02 09:49] LABS: Chol/HDL Ratio 3.41 Ratio; VLDL Calculation 18.96 mg/dL (5.00-40.00)
--- NOTE | 2022-02-02 12:04 | P.HP ---
Psychiatric H&P - . H&P Date: 02/02/22 History & Physical: Allergies Allergy/AdvReac Type Severity Reaction Status Date / Time No Known Allergies Allergy Verified 02/01/22 06:43 Vital Signs Temp 97.6 F 02/02/22 06:49 Pulse 73 02/02/22 06:49 Resp 18 02/02/22 06:49 BP 107/62 02/02/22 06:49 Pulse Ox 96 02/01/22 14:16 FiO2 Intake & Output 02/01/22 02/02/22 02/02/22 18:59 06:59 18:59 Weight 117.934 kg Laboratory Last Values WBC 4.1 k/uL (3.8-10.6) 02/01/22 07:03 RBC 4.92 m/uL (4.30-5.90) 02/01/22 07:03 Hgb 15.8 gm/dL (13.0-17.5) 02/01/22 07:03 Hct 44.7 % (39.0-53.0) 02/01/22 07:03 MCV 90.9 fL (80.0-100.0) 02/01/22 07:03 MCH 32.2 pg (25.0-35.0) 02/01/22 07:03 MCHC 35.4 g/dL (31.0-37.0) 02/01/22 07:03 RDW 12.7 % (11.5-15.5) 02/01/22 07:03 Plt Count 260 k/uL (150-450) 02/01/22 07:03 MPV 7.5 02/01/22 07:03 Neutrophils % 54 % 02/01/22 07:03 Lymphocytes % 35 % 02/01/22 07:03 Monocytes % 4 % 02/01/22 07:03 Eosinophils % 4 % 02/01/22 07:03 Basophils % 1 % 02/01/22 07:03 Neutrophils # 2.2 k/uL (1.3-7.7) 02/01/22 07:03 Lymphocytes # 1.5 k/uL (1.0-4.8) 02/01/22 07:03 Monocytes # 0.2 k/uL (0-1.0) 02/01/22 07:03 Eosinophils # 0.2 k/uL (0-0.7) 02/01/22 07:03 Basophils # 0.0 k/uL (0-0.2) 02/01/22 07:03 Sodium 142 mmol/L (137-145) 02/01/22 07:03 Potassium 3.9 mmol/L (3.5-5.1) 02/01/22 07:03 Chloride 107 mmol/L (98-107) 02/01/22 07:03 Carbon Dioxide 25 mmol/L (22-30) 02/01/22 07:03 Anion Gap 10 mmol/L 02/01/22 07:03 BUN 14 mg/dL (9-20) 02/01/22 07:03 Creatinine 1.05 mg/dL (0.66-1.25) 02/01/22 07:03 Est GFR (CKD-EPI)AfAm >90 (>60 ml/min/1.73 sqM) 02/01/22 07:03 Est GFR (CKD-EPI)NonAf >90 (>60 ml/min/1.73 sqM) 02/01/22 07:03 Glucose 107 mg/dL (74-99) H 02/01/22 07:[address] Glu mg/dL 109 02/01/22 07:03 Hemoglobin A1c 5.4 % (0.0-6.0) 02/01/22 07:03 Calcium 9.3 mg/dL (8.4-10.2) 02/01/22 07:03 Total Bilirubin 0.7 mg/dL (0.2-1.3) 02/01/22 07:03 AST 75 U/L (17-59) H 02/01/22 07:03 ALT 179 U/L (4-49) H 02/01/22 07:03 Alkaline Phosphatase 78 U/L (38-126) 02/01/22 07:03 Total Protein 7.9 g/dL (6.3-8.2) 02/01/22 07:03 Albumin 5.0 g/dL (3.5-5.0) 02/01/22 07:03 Triglycerides 94.80 mg/dL (0.00-149.00) 02/01/22 07:03 Cholesterol 133.00 mg/dL (0.00-200.00) 02/01/22 07:03 LDL Cholesterol, Calc 75.0 mg/dL (0.0-131.0) 02/01/22 07:03 VLDL Cholesterol, Calc 18.96 mg/dL (5.00-40.00) 02/01/22 07:03 HDL Cholesterol 39.00 mg/dL (40.00-60.00) L 02/01/22 07:03 Cholesterol/HDL Ratio 3.41 Ratio 02/01/22 07:03 TSH 1.160 mIU/L (0.465-4.680) 02/01/22 07:03 Urine Color Light Yellow 02/01/22 09:57 Urine Appearance Clear (Clear) 02/01/22 09:57 Urine pH 7.0 (5.0-8.0) 02/01/22 09:57 Ur Specific [place] 1.010 (1.001-1.035) 02/01/22 09:57 Urine Protein Negative (Negative) 02/01/22 09:57 Urine Glucose (UA) Negative (Negative) 02/01/22 09:57 Urine Ketones Negative (Negative) 02/01/22 09:57 Urine Blood Negative (Negative) 02/01/22 09:57 Urine Nitrite Negative (Negative) 02/01/22 09:57 Urine Bilirubin Negative (Negative) 02/01/22 09:57 Urine Urobilinogen <2.0 mg/dL (<2.0) 02/01/22 09:57 Ur Leukocyte Esterase Negative (Negative) 02/01/22 09:57 Salicylates <1.0 mg/dL 02/01/22 07:03 Urine Opiates Screen Not Detected (NotDetected) 02/01/22 09:57 Ur Oxycodone Screen Not Detected (NotDetected) 02/01/22 09:57 Urine Methadone Screen Not Detected (NotDetected) 02/01/22 09:57 Ur Propoxyphene Screen Not Detected (NotDetected) 02/01/22 09:57 Acetaminophen <10.0 ug/mL 02/01/22 07:03 Ur Barbiturates Screen Not Detected (NotDetected) 02/01/22 09:57 U Tricyclic Antidepress Not Detected (NotDetected) 02/01/22 09:57 Ur Phencyclidine Scrn Not Detected (NotDetected) 02/01/22 09:57 Ur Amphetamines Screen Not Detected (NotDetected) 02/01/22 09:57 U Methamphetamines Scrn Not Detected (NotDetected) 02/01/22 09:57 U Benzodiazepines Scrn Not Detected (NotDetected) 02/01/22 09:57 Urine Cocaine Screen Not Detected (NotDetected) 02/01/22 09:57 U Marijuana (THC) Screen Not Detected (NotDetected) 02/01/22 09:57 Serum Alcohol <10 mg/dL 02/01/22 07:03 Coronavirus (PCR) Not Detected (Not Detectd) 02/01/22 10:01 02/02/22 12:03 IDENTIFYING DATA: Patient is a 27-year-old male with significant history of cluster B personality disorder who presents to our hospital after an intentional overdose on Benadryl HPI: Patient presented to the hospital on 02/01/2022, brought into the hospital on his own volition for evaluation after intentionally overdosing on approximately 24 tablets of Benadryl. The patient reportedly took them at approximately 6 AM. As per EPS report, the patient reported waking up and saying "I am just going to take these meds and end it." He reports that he has been feeling increasingly suicidal after recently moving back in with his parents. He states that his sister is also having a baby and that he has no friends and is feeling particularly alone and down. He was subsequently admitted to our psychiatric unit. He reports that he is open with [facility] but would not be able to see anyone for 30-60 days. He reports to this provider that he overdosed on the Benadryl in order to be able to see the [facility] therapist much quicker. In regards to depressive symptoms, the patient does report anhedonia, loneliness, and chronic suicidal ideation. The patient has had multiple attempts at suicide in the past including by overdose and his fixation. He does admit that he has a personality disorder however has been unable to properly address this through therapy as he feels like the therapists he has been super with did not properly address his issues. In regards to psychotic symptoms, the patient is not reporting any auditory or visual hallucinations. He is denying any paranoia or other delusions. He is not reporting any current manic episodes. He denies any increased goal-directed activity, increased energy, or grandiosity. He does report a history of "manic episodes" stating that he would have periods of increased sexual activity, increased impulsive behaviors, and irritability. During his last admission, he did admit to a history of auditory hallucinations but is currently denying any auditory or visual hallucinations at this time. The patient does have a significant history of symptoms consistent with cluster B personality disorders. He does report a significant history of self-injurious behavior, chronic feelings of emptiness, impulsivity, splitting, narcissism, and a lack of empathy. He is admitted for further evaluation and treatment. PAST PSYCHIATRIC HISTORY: Patient states that he has been previously diagnosed with bipolar disorder. The patient suspects that he is autistic. Patient was reportedly at [facility] for approximately 30 days prior to being discharged on 01/21/2022. He was last hospitalized on our unit in November of 2021. He was last discharged on a regimen of lithium, Topamax, and prazosin however he is non-adherent with medications and he has previously overdosed on lithium. PMH: Additional Past Medical History / Comment(s): THROAT ABSCESS, BPD History of Any Multi-Drug Resistant Organisms: None Reported Past Surgical History: No Surgical Hx Reported, Tonsillectomy Past Anesthesia/Blood Transfusion Reactions: No Reported Reaction Additional Past Anesthesia/Blood Transfusion Reaction / Comment(s): FIRST ANSTHETIC Past Psychological History: Anxiety, Bipolar, Depression Smoking Status: Current every day smoker Past Alcohol Use History: Occasional Additional Past Alcohol Use History / Comment(s): STARTED SMOKING AT AGE 16 SMOKES 1/2PPD Past Drug Use History: Cocaine ALLERGIES: NO KNOWN DRUG ALLERGIES CHEMICAL DEPENDENCY HISTORY: Patient reports that he vapes daily. He reports otherwise 1 cigarette per day. He reports rare alcohol use. He denies any drug use or marijuana use. The patient does have a history of psychedelics and cocaine use during his high school years. FAMILY PSYCHIATRIC/SUBSTANCE USE HISTORY: As per chart review, mother is addicted to opiates. SOCIAL HISTORY: Patient was born and raised in [place]. He is single, never ma rried. Currently lives with his parents. MENTAL STATUS EXAM: General Appearance: Patient appears to be stated age is alert, directable, and attempts to cooperate. Patient appears to have fair hygiene and grooming. Behavior: Patient is seated without any agitated behavior. Eye contact is poor. Speech: Patient's speech is fluent and nonpressured. Monotone. Mood/Affect: Patient reports their mood is depressed, affect is congruent and blunted. Suicidality/Homicidality: Patient is currently denying both suicidal and homicidal ideation. Perceptions: Patient denies any visual hallucinations and denies any auditory hallucinations Though content/process: There is no evidence of any delusional thought content and thought process is linear and goal-directed. Memory and concentration: AOX3, grossly intact for the purposes of this session. Can spell "WORLD" backwards Judgment and insight: poor STRENGTHS/WEAKNESSES: Strengths that the patient is resilient. Weakness is that the patient has poor coping skills. INTELLECT: average IMPRESSIONS: Bipolar 2 disorder, depressive episode Borderline personality disorder Posttraumatic stress disorder Tobacco use disorder PLAN: -Patient is admitted under voluntary status to [facility] for stabilization of psychiatric symptoms and safety. Patient signed adult voluntary form and medication consent and is placed in patient's chart. -Medications : Will start patient on Prazosin 1 mg by mouth at bedtime for PTSD -Ativan and Haldol PRN for agitation/aggression -Patient was counselled on substance abuse and desired to cut back on use -Patient was informed of the risks, benefits and side effects of the medication and patient verbally consented to taking the medications. Patient signed med consent form and was placed in chart. -Internal Medicine consult to perform medical evaluation and physical. -NRT - nicotine patch -SW on board for discharge planning. Encourage patient to participate in groups to work on coping skills. 02/02/22 12:04
[2022-02-02] MEDS: LORazepam 1 MG TAB PO PRN (16:23)
[2022-02-02] MEDS ORDERED: PRAZOSIN 1 MG CAP PO SCH (21:00)
[2022-02-03] MEDS: LORazepam 1 MG TAB PO PRN (09:02)
[2022-02-03] MEDS: NICOTINE 14MG/24HR PATCH TRANSDERM SCH (09:02)
[2022-02-03 09:07] VITALS: BP 133/75; RESP 16; TEMP 97
[2022-02-03 10:44] VITALS: PULSE 139
--- NOTE | 2022-02-03 11:14 | P.PN ---
Progress Note - Text Progress Note Date: 02/03/22 Interval History: Patient was seen resting in bed and was directable and agreeable to speak with feature writer in his room. At , patient is not reporting any suicidal or homicidal ideation, intention, and/or plan. He is not reporting any self-injurious behavior urges. He remains future and goal oriented with plans to attend therapy at [facility]. He is not reporting any significant side effects of his medication however has been noted to be tachycardic. The patient also expresses concerns that he might have Covid due to upper respiratory symptoms. He otherwise reports no issues regarding his sleep or his appetite. He denies any auditory or visual hallucinations. He does not wish to start any new medications at this time. Mental Status Exam: General Appearance: Patient appears to be stated age is alert, directable, and cooperative. Behavior: Patient is calmly seated without any agitated behavior. Speech: Patient's speech is fluent and nonpressured. Mood/Affect: Mood is improving mildly, affect is congruent and constricted. Suicidality/Homicidality: Patient denies having any suicidal or homicidal ideation intent or plan. Perceptions: Patient denies any visual hallucinations and denies any auditory hallucinations Though content/process: There is no evidence of any delusional thought content and thought process is linear and goal-directed. Memory and concentration: AOX3, grossly intact for the purposes of this session Judgment and insight: Improving mildly Vital Signs Temp 97.0 F L 02/03/22 09:00 Pulse 139 H 02/03/22 10:44 Resp 16 02/03/22 09:00 BP 133/75 02/03/22 09:00 Pulse Ox 97 02/03/22 09:00 FiO2 Assessment Bipolar 2 disorder, depressive episode Borderline personality disorder Posttraumatic stress disorder Tobacco use disorder Plan: -Patient continues to meet criteria for inpatient psychiatric admission for symptom stabilization and safety. Patient has signed adult voluntary form and medication consent and was placed in patient's chart. -EKG ordered to assess tachycardia. -Medications: Continue prazosin 1 mg by mouth at bedtime for PTSD -When necessary Ativan and Haldol for agitation/aggression. -NRT - nicotine patch -SW on board for discharge planning. Encouraged the patient to participate in milieu.
--- NOTE | 2022-02-03 13:20 | P.DS ---
Providers Date of admission: 02/01/22 13:44 Expected date of discharge: 02/03/22 Attending physician: Miguel Donaldson MD Consults: 02/01/22 13:49 Consult Physician Routine Consulting Provider: Parrish Frye Consult Reason/Comments: H and P Do you want consulting provider notified?: Yes Primary care physician: Stated None - Discharge Diagnosis(es) (1) Unspecified mood [affective] disorder Current Visit: Yes Status: Acute Priority: High (2) Borderline personality disorder Current Visit: Yes Status: Acute Priority: High (3) Nicotine dependence Current Visit: Yes Status: Chronic Priority: Medium (4) PTSD (post-traumatic stress disorder) Current Visit: Yes Status: Chronic Priority: Medium Hospital Course: Admission HPI: Patient is a 27-year-old male with significant history of cluster B personality disorder who presents to our hospital after an intentional overdose on Benadryl Patient presented to the hospital on 02/01/2022, brought into the hospital on his own volition for evaluation after intentionally overdosing on approximately 24 tablets of Benadryl. The patient reportedly took them at approximately 6 AM. As per EPS report, the patient reported waking up and saying "I am just going to take these meds and end it." He reports that he has been feeling increasingly suicidal after recently moving back in with his parents. He states that his sister is also having a baby and that he has no friends and is feeling particularly alone and down. He was subsequently admitted to our psychiatric unit. He reports that he is open with [facility] but would not be able to see anyone for 30-60 days. He reports to this provider that he overdosed on the Benadryl in order to be able to see the [facility] therapist much quicker. In regards to depressive symptoms, the patient does report anhedonia, loneliness, and chronic suicidal ideation. The patient has had multiple attempts at suicide in the past including by overdose and his fixation. He does admit that he has a personality disorder however has been unable to properly address this through therapy as he feels like the therapists he has been super with did not properly address his issues. In regards to psychotic symptoms, the patient is not reporting any auditory or visual hallucinations. He is denying any paranoia or other delusions. He is not reporting any current manic episodes. He denies any increased goal-directed activity, increased energy, or grandiosity. He does report a history of "manic episodes" stating that he would have periods of increased sexual activity, increased impulsive behaviors, and irritability. During his last admission, he did admit to a history of auditory hallucinations but is currently denying any auditory or visual hallucinations at this time. The patient does have a significant history of symptoms consistent with cluster B personality disorders. He does report a significant history of self-injurious behavior, chronic feelings of emptiness, impulsivity, splitting, narcissism, and a lack of empathy. He is admitted for further evaluation and treatment. Patient states that he has been previously diagnosed with bipolar disorder. The patient suspects that he is autistic. Patient was reportedly at [facility] for approximately 30 days prior to being discharged on 01/21/2022. He was last hospitalized on our unit in November of 2021. He was last discharged on a regimen of lithium, Topamax, and prazosin however he is non-adherent with medications and he has previously overdosed on lithium. Hospital course: Upon admission to the unit patient was initially presenting as calm, cooperative and polite. Patient however directable and agreeable to commence treatment. Patient got along well with other patients on the unit and followed unit protocol. Patient was compliant with the medications and denied any side effects throughout hospital course. Patient was started on prazosin for PTSD. Patient spoke of his stressors and engaged in therapy but remained primarily isolative to himself. Patient was also seen by medical team for history and physical exam. We spent the initial interview undergoing the basics of Dialectical Behavioral Therapy. We discussed mentalization techniques and the importance of validating emotions and communicating appropriately. During this hospitalization, the patient tested positive for COVID after being retested due to new onset symptoms and the history of his family recently being infected. The patient endorses symptoms of malaise, upper respiratory congestion, and nausea. He did have an episode of emesis. However, the patient is not reporting any suicidal or homicidal ideation, intention, and/or plan. He reports no auditory or visual hallucinations. He reports no paranoia or other delusions. He does acknowledge that if he was a danger to himself he would come back to the hospital. He has been requesting discharge. He is scheduled for outpatient follow-up. He understands his primary diagnoses are related to his personality disorder. He denies any access to firearms or other weapons. He was counseled at length on outpatient follow-up and abstaining from mild-altering substances. Prior to discharge, a family meeting was arranged to answer any questions and ensure safety. Mental status exam: General Appearance: Patient appears to be stated age is alert, pleasant, and cooperative. Patient is in no acute distress and has fair hygiene and grooming Behavior: Patient is calmly seated without any agitated behavior. Speech: Patient's speech is fluent and nonpressured. Mood/Affect: Patient reports their mood is "feeling a little sick", affect is congruent and malaised but euthymic. Suicidality/Homicidality: Patient denies having any suicidal or homicidal ideation intent or plan. Perceptions: Patient denies any auditory or visual hallucinations. Though content/process: There is no evidence of any delusional thought content and thought process is linear and goal-directed.He is future oriented. Memory and concentration: AOX3, grossly intact for the purposes of this session. Can spell "WORLD" backwards correctly. Judgment and insight: Improved with guarded prognosis Impression: Unspecified mood disorder Borderline personality disorder Posttraumatic stress disorder Tobacco use disorder Plan: -Continue with discharge today as patient has improved and stabilized psychiatrically and is not currently an imminent threat to himself and/or others. Patient will remain at chronically elevated risk for harm to self and/or others due to his poor coping skills. -Continue medications: No medications will be prescribed on discharge. Patient's primary diagnoses are related to his personality disorder. He has overdosed on prescribed medications a number of times. He is in agreement to follow outpatient with therapy. -Patient was counseled on the need for appropriate follow-up at mental health and also primary care for medical issues. Patient verbalized understanding and agreed. -Should his covid symptoms worsen, he was advised to return to the hospital. -Social work to arrange for and conduct family meeting to ensure safety upon discharge and answer any questions/concerns. Social work also to arrange for patients follow up appointments for psychiatric care with [facility] along with follow up with primary care provider. -Patient counseled on abstaining from recreational drugs and marijuana and alcohol. Was informed/educated on the adverse effects on their physical and mental health. Patient verbally agreed and understood. -Patient was instructed to return to the hospital or seek immediate medical care if their psychiatric or medical symptoms do worsen or reoccur. Vital Signs Temp 97.0 F L 02/03/22 09:00 Pulse 139 H 02/03/22 10:44 Resp 16 02/03/22 09:00 BP 133/75 02/03/22 09:00 Pulse Ox 97 02/03/22 09:00 FiO2 Laboratory Results WBC 4.1 k/uL (3.8-10.6) 02/01/22 07:03 RBC 4.92 m/uL (4.30-5.90) 02/01/22 07:03 Hgb 15.8 gm/dL (13.0-17.5) 02/01/22 07:03 Hct 44.7 % (39.0-53.0) 02/01/22 07:03 MCV 90.9 fL (80.0-100.0) 02/01/22 07:03 MCH 32.2 pg (25.0-35.0) 02/01/22 07:03 MCHC 35.4 g/dL (31.0-37.0) 02/01/22 07:03 RDW 12.7 % (11.5-15.5) 02/01/22 07:03 Plt Count 260 k/uL (150-450) 02/01/22 07:03 MPV 7.5 02/01/22 07:03 Neutrophils % 54 % 02/01/22 07:03 Lymphocytes % 35 % 02/01/22 07:03 Monocytes % 4 % 02/01/22 07:03 Eosinophils % 4 % 02/01/22 07:03 Basophils % 1 % 02/01/22 07:03 Neutrophils # 2.2 k/uL (1.3-7.7) 02/01/22 07:03 Lymphocytes # 1.5 k/uL (1.0-4.8) 02/01/22 07:03 Monocytes # 0.2 k/uL (0-1.0) 02/01/22 07:03 Eosinophils # 0.2 k/uL (0-0.7) 02/01/22 07:03 Basophils # 0.0 k/uL (0-0.2) 02/01/22 07:03 Sodium 142 mmol/L (137-145) 02/01/22 07:03 Potassium 3.9 mmol/L (3.5-5.1) 02/01/22 07:03 Chloride 107 mmol/L (98-107) 02/01/22 07:03 Carbon Dioxide 25 mmol/L (22-30) 02/01/22 07:03 Anion Gap 10 mmol/L 02/01/22 07:03 BUN 14 mg/dL (9-20) 02/01/22 07:03 Creatinine 1.05 mg/dL (0.66-1.25) 02/01/22 07:03 Est GFR (CKD-EPI)AfAm >90 (>60 ml/min/1.73 sqM) 02/01/22 07:03 Est GFR (CKD-EPI)NonAf >90 (>60 ml/min/1.73 sqM) 02/01/22 07:03 Glucose 107 mg/dL (74-99) H 02/01/22 07:[address] Glu mg/dL 109 02/01/22 07:03 Hemoglobin A1c 5.4 % (0.0-6.0) 02/01/22 07:03 Calcium 9.3 mg/dL (8.4-10.2) 02/01/22 07:03 Total Bilirubin 0.7 mg/dL (0.2-1.3) 02/01/22 07:03 AST 75 U/L (17-59) H 02/01/22 07:03 ALT 179 U/L (4-49) H 02/01/22 07:03 Alkaline Phosphatase 78 U/L (38-126) 02/01/22 07:03 Total Protein 7.9 g/dL (6.3-8.2) 02/01/22 07:03 Albumin 5.0 g/dL (3.5-5.0) 02/01/22 07:03 Triglycerides 94.80 mg/dL (0.00-149.00) 02/01/22 07:03 Cholesterol 133.00 mg/dL (0.00-200.00) 02/01/22 07:03 LDL Cholesterol, Calc 75.0 mg/dL (0.0-131.0) 02/01/22 07:03 VLDL Cholesterol, Calc 18.96 mg/dL (5.00-40.00) 02/01/22 07:03 HDL Cholesterol 39.00 mg/dL (40.00-60.00) L 02/01/22 07:03 Cholesterol/HDL Ratio 3.41 Ratio 02/01/22 07:03 TSH 1.160 mIU/L (0.465-4.680) 02/01/22 07:03 Urine Color Light Yellow 02/01/22 09:57 Urine Appearance Clear (Clear) 02/01/22 09:57 Urine pH 7.0 (5.0-8.0) 02/01/22 09:57 Ur Specific [place] 1.010 (1.001-1.035) 02/01/22 09:57 Urine Protein Negative (Negative) 02/01/22 09:57 Urine Glucose (UA) Negative (Negative) 02/01/22 09:57 Urine Ketones Negative (Negative) 02/01/22 09:57 Urine Blood Negative (Negative) 02/01/22 09:57 Urine Nitrite Negative (Negative) 02/01/22 09:57 Urine Bilirubin Negative (Negative) 02/01/22 09:57 Urine Urobilinogen <2.0 mg/dL (<2.0) 02/01/22 09:57 Ur Leukocyte Esterase Negative (Negative) 02/01/22 09:57 Salicylates <1.0 mg/dL 02/01/22 07:03 Urine Opiates Screen Not Detected (NotDetected) 02/01/22 09:57 Ur Oxycodone Screen Not Detected (NotDetected) 02/01/22 09:57 Urine Methadone Screen Not Detected (NotDetected) 02/01/22 09:57 Ur Propoxyphene Screen Not Detected (NotDetected) 02/01/22 09:57 Acetaminophen <10.0 ug/mL 02/01/22 07:03 Ur Barbiturates Screen Not Detected (NotDetected) 02/01/22 09:57 U Tricyclic Antidepress Not Detected (NotDetected) 02/01/22 09:57 Ur Phencyclidine Scrn Not Detected (NotDetected) 02/01/22 09:57 Ur Amphetamines Screen Not Detected (NotDetected) 02/01/22 09:57 U Methamphetamines Scrn Not Detected (NotDetected) 02/01/22 09:57 U Benzodiazepines Scrn Not Detected (NotDetected) 02/01/22 09:57 Urine Cocaine Screen Not Detected (NotDetected) 02/01/22 09:57 U Marijuana (THC) Screen Not Detected (NotDetected) 02/01/22 09:57 Serum Alcohol <10 mg/dL 02/01/22 07:03 Coronavirus (PCR) Detected (Not Detectd) A 02/03/22 11:45 Allergies Allergy/AdvReac Type Severity Reaction Status Date / Time No Known Allergies Allergy Verified 02/01/22 06:43 Patient Condition at Discharge: Stable Plan - Discharge Summary Discharge Rx Participant: No New Discharge Prescriptions: No Action No Known Home Medications Discharge Medication List No Known Home Medications 02/01/22 [History] Follow up Appointment(s)/Referral(s): Abdoulaye Delgado [Other] - 02/05/22 3:30 pm (02/05 @ 3:30 Psych Eval with Jey Edward via telehealth 02/08 @ 14:30 adriana Henry in office) [facility] - 1 Week Patient Instructions/Handouts: Bipolar Disorder (DC), Post Traumatic Stress Disorder (DC), COVID-19 (Coronavirus Disease 2019) (ED) Activity/Diet/Wound Care/Special Instructions: Avoid the use of street drugs and alcohol. Take all prescriptions as prescribed. When you are in need of refills on your medications, please contact your medical provider and/or outpatient psychiatrist to have this done. Please go to scheduled outpatient appointment for aftercare treatment. If symptoms return or become worse, call the crisis line at and/or go to the nearest emergency room for evaluation Discharge Disposition: HOME SELF-CARE
== END 2022-02-03 14:00 | disposition home or self-care (01) | DRG 917 ==
LOC: EC 06:35 → 3MHU 13:44
PROVIDERS: ADMIT Psychiatry & Neurology Psychiatry; ATTEND Psychiatry & Neurology Psychiatry
DX: T45.0X2A Poisoning by antiallergic and antiemetic drugs, intentional self-harm, initial encounter (principal); U07.1 COVID-19; R45.851 Suicidal ideations; F31.81 Bipolar II disorder; F19.11 Other psychoactive substance abuse, in remission; F17.210 Nicotine dependence, cigarettes, uncomplicated; F14.91 Cocaine use, unspecified, in remission; F60.3 Borderline personality disorder; T42.6X6A Underdosing of other antiepileptic and sedative-hypnotic drugs, initial encounter; T44.6X6A Underdosing of alpha-adrenoreceptor antagonists, initial encounter; F17.290 Nicotine dependence, other tobacco product, uncomplicated; F43.10 Post-traumatic stress disorder, unspecified; R00.0 Tachycardia, unspecified; R11.2 Nausea with vomiting, unspecified; R74.01 Elevation of levels of liver transaminase levels; Z91.52 Personal history of nonsuicidal self-harm; Z91.128 Patient's intentional underdosing of medication regimen for other reason; Z81.3 Family history of other psychoactive substance abuse and dependence; Z63.72 Alcoholism and drug addiction in family; Z91.51 Personal history of suicidal behavior; Z28.310 Unvaccinated for COVID-19
CPT/HCPCS: 36415; 80053; 80061; 80143; 80179; 80306; 80320; 81003; 83036; 84443; 85025; 87635; 93005; 99285

== ENCOUNTER 2022-02-18 14:48 | Emergency (ER) | payer OTHER ==
[2022-02-18 15:15] VITALS: RESP 18; TEMP 99.2
[2022-02-18 16:28] LABS: Basophils # (A) 0.1 k/uL (0-0.2); Basophils % (A) 1 %; Eosinophils # (A) 0.2 k/uL (0-0.7); Eosinophils % (A) 2 %; HCT 43.3 % (39.0-53.0); HGB 15.8 gm/dL (13.0-17.5); Lymphocytes # (A) 2.5 k/uL (1.0-4.8); Lymphocytes % (A) 38 %; MCHC 36.4 g/dL (31.0-37.0); Mean Platelet Volume 7.6; Monocytes # (A) 0.3 k/uL (0-1.0); Monocytes % (A) 4 %; Neutrophils # (A) 3.4 k/uL (1.3-7.7); Neutrophils % (A) 52 %; Platelet Count 279 k/uL (150-450); RBC 4.93 m/uL (4.30-5.90); RDW 12.3 % (11.5-15.5); WBC 6.5 k/uL (3.8-10.6)
[2022-02-18 17:08] LABS: ALT 102 U/L (4-49); AST 50 U/L (17-59); African American GFR (CKD) >90 (>60 ml/min/1.73 sqM); Albumin 4.8 g/dL (3.5-5.0); Alkaline Phosphatase 79 U/L (38-126); Amylase 67 U/L (30-110); Anion Gap 12 mmol/L; Blood Urea Nitrogen 15 mg/dL (9-20); Calcium 9.2 mg/dL (8.4-10.2); Carbon Dioxide 20 mmol/L (22-30); Chloride 107 mmol/L (98-107); Glucose 111 mg/dL (74-99); Lipase 340 U/L (23-300); Non-African American GFR(CKD) >90 (>60 ml/min/1.73 sqM); Potassium 4.1 mmol/L (3.5-5.1); Sodium 139 mmol/L (137-145); Total Bilirubin 0.6 mg/dL (0.2-1.3); Total Protein 7.7 g/dL (6.3-8.2)
--- NOTE | 2022-02-18 17:34 | US ---
EXAMINATION TYPE: US gallbladder DATE OF EXAM: 02/18/2022 COMPARISON: NONE CLINICAL HISTORY: abdominal pain. TECHNIQUE: Multiple sonographic images of the right upper quadrant are obtained. FINDINGS: EXAM MEASUREMENTS: Liver Length: 20.0 cm Gallbladder Wall: 0.2 cm CBD: 0.5 cm Right Kidney: 11.0 x 4.3 x 5.4 cm Spleen: 13.7cm PATTERN MAKER PROGRAMER NOTES: Morbidly obese patient. Pancreas: Obscured by bowel gas Liver: highly attenuating, unable to visualize vessels , unable to penetrate, enlarged Gallbladder: patient 2 hours post prandial, contracted, not well seen Evidence for sonographic Palumbo's sign: CBD: not well seen. Right Kidney: wnl Spleen: measures large IMPRESSION: 1. Hepatosplenomegaly. 2. Contracted gallbladder which may be due to recent ingestion
[2022-02-18] MEDS ORDERED: SODIUM CHLORIDE 0.9% 1,000 ML IV STA ×2 (18:24)
[2022-02-18 18:51] LABS: Appearance,Urine Clear (Clear); Bilirubin,Urine Negative (Negative); Blood,Urine Negative (Negative); Color,Urine Yellow; Glucose,Urine (UA) Negative (Negative); Ketones,Urine Negative (Negative); Leukocyte Esterase,Urine Negative (Negative); Nitrite,Urine Negative (Negative); Protein,Urine Trace (Negative); Specific Gravity,Urine 1.029 (1.001-1.035)
--- NOTE | 2022-02-18 20:43 | CT ---
EXAMINATION TYPE: CT abdomen pelvis w con DATE OF EXAM: 02/18/2022 COMPARISON: None INDICATION: LLQ abd pain DLP: 2147.2 mGycm, Automated exposure control for dose reduction was used. CONTRAST: 100ml mL of Isovue 300. Study performed without Oral Contrast TECHNIQUE: Axial images were obtained from above the diaphragm to the pubic rami in the axial plane a t 5 mm thick sections. Reconstructed images are reviewed on the computer in the coronal plane. FINDINGS: Limited CT sections are obtained the lung bases. The lung bases are clear. CT ABDOMEN: Liver: There is moderate fatty infiltration of the liver. No discrete masses are evident. Spleen: Normal Pancreas: Normal Adrenal glands: The adrenal glands are normal. Gallbladder: Contracted Kidneys: No masses are evident. No hydronephrosis is present. No cysts are present. No renal stone s are identified. Aorta: Normal Inferior vena cava: Normal. CT PELVIS: Loops of bowel within the abdomen and pelvis are normal. No suspicious diverticulitis. No significan t diverticulosis evident. No obvious bowel wall thickening or adjacent inflammatory change. The nathan dy is without oral contrast limiting bowel evaluation. Appendix: Normal as visualized. Urinary bladder: Normal. Genitourinary structures: Prostate appears normal. Osseous structures: No suspicious lytic or sclerotic lesions. IMPRESSIONS: 1. Moderate fatty infiltration throughout the liver. 2. No suspicious abnormalities account for left lower quadrant pain.
[2022-02-18 20:49] VITALS: BP 102/67; PULSE 85
--- NOTE | 2022-02-18 21:20 | ED ---
Abdominal Pain HPI - General Chief Complaint: Abdominal Pain Stated Complaint: Abd pain Time Seen by Provider: 02/18/22 18:15 Source: patient Mode of arrival: ambulatory Limitations: no limitations - History of Present Illness Initial Comments: This 27-year-old male presents with a complaint of some left lower quadrant abdominal pain. He states that this is been present over the last couple of days. He also complains of some nausea as well as vomiting only after she eats. This seems worse with spicy food. He apparently has been diagnosed with reflux in the past and told to take Prilosec 20 mg a day but does not really take it. He apparently overdosed about a week. Ago or so and symptoms seem to be potentially somewhat worse since then. He denies any fevers or chills. He has had some diarrhea chronically. He denies any constipation. There is no urinary symptoms. No flank pain. No other complaints or modifying factors. He denies any blood in his stool or black tarry stools. - Related Data Previous Rx's Medication Instructions Recorded Dicyclomine [Bentyl] 20 mg PO QID PRN #20 tablet 02/18/22 Ondansetron Odt [Zofran Odt] 8 mg PO Q8HR PRN #15 tab 02/18/22 Allergies Allergy/AdvReac Type Severity Reaction Status Date / Time No Known Allergies Allergy Verified 02/18/22 19:10 Review of Systems ROS Statement: Those systems with pertinent positive or pertinent negative responses have been documented in the HPI. ROS Other: All systems not noted in ROS Statement are negative. Past Medical History Additional Past Medical History / Comment(s): THROAT ABSCESS, BPD History of Any Multi-Drug Resistant Organisms: None Reported Past Surgical History: No Surgical Hx Reported, Tonsillectomy Past Anesthesia/Blood Transfusion Reactions: No Reported Reaction Additional Past Anesthesia/Blood Transfusion Reaction / Comment(s): FIRST ANSTHETIC Past Psychological History: Anxiety, Bipolar, Depression Smoking Status: Current every day smoker Past Alcohol Use History: Occasional Past Drug Use History: Cocaine - Past Family History Mother Family Medical History: No Reported History General Exam - General Exam Comments Initial Comments: GENERAL: The patient is well nourished and well hydrated. VITAL SIGNS: Heart rate, blood pressure, respiratory rate reviewed as recorded in nurse's notes. EYES: Pupils are round and reactive. Extraocular movements are intact. No conjunctival / lid redness or swelling. ENT: No external evidence of injury, swelling, or ecchymosis. Airway is patent. Throat is clear. NECK: Nontender. No swelling or evidence of injury. No subcutaneous emphysema. Trachea is midline. No thyroid mass. HEART: Regular rate and rhythm. Good peripheral pulses. LUNGS/CHEST: Breath sounds clear and equal bilaterally. No rales, rhonchi, or wheezes. No ecchymosis, subcutaneous emphysema, or tenderness. ABDOMEN: Abdomen soft with mild tenderness to the left lower quadrant. No palpable masses or organomegaly. No peritoneal signs. No abdominal wall swelling or ecchymosis. EXTREMITIES: No extremity tenderness. Normal muscle tone and function. No thoracolumbar tenderness. NEUROLOGIC: Sensation is grossly intact. Cranial nerve exam reveals face is symmetrical, tongue is midline, speech is clear. SKIN: No abrasions or ecchymosis is noted. No induration or masses noted. PSYCHIATRIC: Alert and oriented. Appropriate behavior and judgment. Limitations: no limitations Course Vital Signs 02/18/22 02/18/22 15:11 20:48 Temperature 99.2 F Pulse Rate 118 H 85 Respiratory 18 18 Rate Blood Pressure 121/69 102/67 O2 Sat by Pulse 96 95 Oximetry Medical Decision Making - Medical Decision Making Was pt. sent in by a medical professional or institution? @ -None Did you speak to anyone other than the patient for history? @ -Mother Did you review nursing and triage notes? @ -Yes, I agree Were old charts reviewed? @ -. Differential Diagnosis? @ -Diverticulitis, gastritis, gastroesophageal reflux EKG interpreted by me (3pts min.)? @ -No EKG X-rays interpreted by me (1pt min.)? @ -No x-rays CT interpreted by me (1pt min.)? @ -No U/S interpreted by me (1pt. min.)? @ -Known What testing was considered but not performed? (CT, X-rays, U/S, labs)? Why? @None What meds were considered but not given? Why? @ -None Did you discuss the management of the patient with other professionals? @ -Known Did you reconcile home meds? @ -No Was smoking cessation discussed for >3mins.? @ -No Was critical care preformed (if so, how long)? @ -Known Were there social determinants of health that impacted care today? How? (Homelessness, low income, unemployed, alcoholism, drug addiction, transportation, low edu. Level, literacy, decrease access to med. care, fci, rehab)? @ -No Was there de-escalation of care discussed even if they declined? (Discuss DNR or withdrawal of care, Hospice)? @ -Known What co-morbidities impacted this encounter? (DM, HTN, Smoking, COPD, CAD, Cancer, CVA, Hep., AIDS, mental health diagnosis, sleep apnea, morbid obesity)? @ -None Was patient admitted / discharged? @ -Discharge Undiagnosed new problem with uncertain prognosis? @ -No Drug Therapy requiring intensive monitoring for toxicity (Heparin, Nitro, Insulin, Cardizem)? @ -Known Were any procedures done? @ -No Diagnosis/symptom? @ -None Acute, or Chronic, or Acute on Chronic? @ -Acute Uncomplicated (without systemic symptoms) or Complicated (systemic symptoms)? @ -Uncomplicated Side effects of treatment? @ -None Exacerbation, Progression, or Severe Exacerbation] @ -Yes Poses a threat to life or bodily function? @ -No The patient was seen and examined. All diagnostics were reviewed. Laboratory shows a lipase slightly elevated. The gallbladder ultrasound does not show any definitive gallstones or gallbladder disease but it is contracted. Radiologist does note a degree of hepatosplenomegaly. Computed tomography scan of the abdomen and pelvis does not show any acute abnormalities. The exact cause of his symptoms are not definitively determined. His nausea and vomiting may be related to possible gastritis and/or reflux. He states that his symptoms are somewhat worse since drinking alcohol a couple nights ago. He has not been taking his Prilosec and states that spicy foods make symptoms worse. The exact cause of the left lower quadrant abdominal pain is not definitively determined. He has had some diarrhea but this sounds somewhat chronic as well. Overall, it is felt as though he may benefit from follow-up with GI as he may potentially need endoscopy. He is instructed to take 40 mg of Prilosec daily. He is prescribed Zofran as well as Bentyl. GI referral information is given. Diet therapy is discussed. - Lab Data Result diagrams: 02/18/22 15:17 02/18/22 15:17 Lab Results 02/18/22 02/18/22 02/18/22 Range/Units 15:17 15:17 15:17 WBC 6.5 (3.8-10.6) k/uL RBC 4.93 (4.30-5.90) m/uL Hgb 15.8 (13.0-17.5) gm/dL Hct 43.3 (39.0-53.0) % MCV 88.0 (80.0-100.0) fL MCH 32.0 (25.0-35.0) pg MCHC 36.4 (31.0-37.0) g/dL RDW 12.3 (11.5-15.5) % Plt Count 279 (150-450) k/uL MPV 7.6 Neutrophils % 52 % Lymphocytes % 38 % Monocytes % 4 % Eosinophils % 2 % Basophils % 1 % Neutrophils # 3.4 (1.3-7.7) k/uL Lymphocytes # 2.5 (1.0-4.8) k/uL Monocytes # 0.3 (0-1.0) k/uL Eosinophils # 0.2 (0-0.7) k/uL Basophils # 0.1 (0-0.2) k/uL APTT 24.9 (22.0-30.0) sec Sodium 139 (137-145) mmol/L Potassium 4.1 (3.5-5.1) mmol/L Chloride 107 (98-107) mmol/L Carbon Dioxide 20 L (22-30) mmol/L Anion Gap 12 mmol/L BUN 15 (9-20) mg/dL Creatinine 0.95 (0.66-1.25) mg/dL Est GFR (CKD-EPI)AfAm >90 (>60 ml/min/1.73 sqM) Est GFR (CKD-EPI)NonAf >90 (>60 ml/min/1.73 sqM) Glucose 111 H (74-99) mg/dL Calcium 9.2 (8.4-10.2) mg/dL Total Bilirubin 0.6 (0.2-1.3) mg/dL AST 50 (17-59) U/L ALT 102 H (4-49) U/L Alkaline Phosphatase 79 (38-126) U/L Total Protein 7.7 (6.3-8.2) g/dL Albumin 4.8 (3.5-5.0) g/dL Amylase 67 (30-110) U/L Lipase 340 H (23-300) U/L Urine Color Urine Appearance (Clear) Urine pH (5.0-8.0) Ur Specific [place] (1.001-1.035) Urine Protein (Negative) Urine Glucose (UA) (Negative) Urine Ketones (Negative) Urine Blood (Negative) Urine Nitrite (Negative) Urine Bilirubin (Negative) Urine Urobilinogen (<2.0) mg/dL Ur Leukocyte Esterase (Negative) 02/18/22 Range/Units 18:45 WBC (3.8-10.6) k/uL RBC (4.30-5.90) m/uL Hgb (13.0-17.5) gm/dL Hct (39.0-53.0) % MCV (80.0-100.0) fL MCH (25.0-35.0) pg MCHC (31.0-37.0) g/dL RDW (11.5-15.5) % Plt Count (150-450) k/uL MPV Neutrophils % % Lymphocytes % % Monocytes % % Eosinophils % % Basophils % % Neutrophils # (1.3-7.7) k/uL Lymphocytes # (1.0-4.8) k/uL Monocytes # (0-1.0) k/uL Eosinophils # (0-0.7) k/uL Basophils # (0-0.2) k/uL APTT (22.0-30.0) sec Sodium (137-145) mmol/L Potassium (3.5-5.1) mmol/L Chloride (98-107) mmol/L Carbon Dioxide (22-30) mmol/L Anion Gap mmol/L BUN (9-20) mg/dL Creatinine (0.66-1.25) mg/dL Est GFR (CKD-EPI)AfAm (>60 ml/min/1.73 sqM) Est GFR (CKD-EPI)NonAf (>60 ml/min/1.73 sqM) Glucose (74-99) mg/dL Calcium (8.4-10.2) mg/dL Total Bilirubin (0.2-1.3) mg/dL AST (17-59) U/L ALT (4-49) U/L Alkaline Phosphatase (38-126) U/L Total Protein (6.3-8.2) g/dL Albumin (3.5-5.0) g/dL Amylase (30-110) U/L Lipase (23-300) U/L Urine Color Yellow Urine Appearance Clear (Clear) Urine pH 6.0 (5.0-8.0) Ur Specific [place] 1.029 (1.001-1.035) Urine Protein Trace H (Negative) Urine Glucose (UA) Negative (Negative) Urine Ketones Negative (Negative) Urine Blood Negative (Negative) Urine Nitrite Negative (Negative) Urine Bilirubin Negative (Negative) Urine Urobilinogen 2.0 (<2.0) mg/dL Ur Leukocyte Esterase Negative (Negative) Disposition Clinical Impression: Abdominal pain, Nausea and vomiting, Diarrhea, Hepatosplenomegaly, Gastroesophageal reflux, Elevated lipase Disposition: HOME SELF-CARE Condition: Good Instructions (If sedation given, give patient instructions): Abdominal Pain (ED) Prescriptions: Dicyclomine [Bentyl] 20 mg PO QID PRN #20 tablet PRN Reason: Pain Ondansetron Odt [Zofran Odt] 8 mg PO Q8HR PRN #15 tab PRN Reason: Nausea Is patient prescribed a controlled substance at d/c from ED?: No Referrals: Jefe Coombs MD [Primary Care Provider] - 1-2 days Bobbi Jules MD [STAFF PHYSICIAN] - 1-2 days Time of Disposition: 21:19
== END 2022-02-18 21:38 | disposition home or self-care (01) ==
LOC: EC 14:48
DX: R10.32 Left lower quadrant pain (principal); R16.2 Hepatomegaly with splenomegaly, not elsewhere classified; K21.9 Gastro-esophageal reflux disease without esophagitis; R74.01 Elevation of levels of liver transaminase levels; R19.7 Diarrhea, unspecified; F41.9 Anxiety disorder, unspecified; F31.9 Bipolar disorder, unspecified; F17.200 Nicotine dependence, unspecified, uncomplicated; F12.90 Cannabis use, unspecified, uncomplicated; Z79.899 Other long term (current) drug therapy
CPT/HCPCS: 36415; 80053; 82150; 83690; 85025; 85730; 81003; 76705; 74177; 99284; 96360; 96361 ×2; Q9967

== ENCOUNTER 2023-01-06 08:29 | Emergency (ER) | payer BC, OTHER ==
[2023-01-06 09:21] VITALS: RESP 18
[2023-01-06 09:53] LABS: Amphetamine Screen,Urine Detected (NotDetected); Barbiturate Screen,Urine Not Detected (NotDetected); Benzodiazepines Screen,Urine Not Detected (NotDetected); Cocaine Screen,Urine Not Detected (NotDetected); Methadone Screen, Urine Not Detected (NotDetected); Opiate Screen,Urine Not Detected (NotDetected); Oxycodone Screen, Urine Not Detected (NotDetected); Phencyclidine Screen,Urine Not Detected (NotDetected); Tricyclic Antidepressant,Urine Not Detected (NotDetected); Urn Cannabinoid Scrn Not Detected (NotDetected)
[2023-01-06 10:21] LABS: Basophils % (A) 1 %; Eosinophils # (A) 0.1 k/uL (0-0.7); Eosinophils % (A) 2 %; HCT 46.1 % (39.0-53.0); HGB 15.9 gm/dL (13.0-17.5); Lymphocytes # (A) 2.8 k/uL (1.0-4.8); Lymphocytes % (A) 35 %; MCH 31.4 pg (25.0-35.0); MCHC 34.5 g/dL (31.0-37.0); Mean Platelet Volume 7.2; Monocytes # (A) 0.4 k/uL (0-1.0); Monocytes % (A) 5 %; Neutrophils # (A) 4.4 k/uL (1.3-7.7); Neutrophils % (A) 57 %; Platelet Count 279 k/uL (150-450); RBC 5.07 m/uL (4.30-5.90); RDW 12.5 % (11.5-15.5); WBC 7.8 k/uL (3.8-10.6)
[2023-01-06 10:33] LABS: ALT 136 U/L (4-49); AST 55 U/L (17-59); Acetaminophen <10.0 ug/mL; African American GFR (CKD) >90 (>60 ml/min/1.73 sqM); Alcohol <10 mg/dL; Alkaline Phosphatase 63 U/L (38-126); Anion Gap 15 mmol/L; Blood Urea Nitrogen 12 mg/dL (9-20); Calcium 10.1 mg/dL (8.4-10.2); Carbon Dioxide 23 mmol/L (22-30); Chloride 104 mmol/L (98-107); Creatine Kinase 187 U/L (55-170); Glucose 135 mg/dL (74-99); Non-African American GFR(CKD) >90 (>60 ml/min/1.73 sqM); Potassium 3.9 mmol/L (3.5-5.1); Salicylate <1.0 mg/dL; Sodium 142 mmol/L (137-145); Total Bilirubin 0.9 mg/dL (0.2-1.3); Total Protein 8.1 g/dL (6.3-8.2)
--- NOTE | 2023-01-06 11:11 | ED ---
Overdose HPI - General Chief Complaint: Overdose Stated Complaint: [id number] vyvanse low abd pain Time Seen by Provider: 01/06/23 08:40 Source: patient Mode of arrival: ambulatory Limitations: no limitations - History of Present Illness Initial Comments: 27-year-old male presents emergency department after unintentional overdose. States that he took his prescription of Vyvanse and placed the entirety of the bottle in a bottle of water. States that he has difficulty swallowing pills and therefore he usually takes his medications dissolved in water. He admits that he usually takes the entire prescription, dissolves that and slowly drinks a sip of the water a day. Yesterday the patient did not realize that the water that he had entirely consumed was his medication. This was done at approximately 10 AM. He presents for unintentional overdose. He denies any symptoms at this time. No nausea or vomiting. No chest pain or difficulty breathing. No report of any palpitations. He denies ingestion of any other drug. No other alleviating, precipitating or modifying factors - Related Data Home Medications Medication Instructions Recorded Confirmed Lisdexamfetamine Dimesylate 30 mg PO QAM 01/06/23 01/06/23 [Vyvanse] Allergies Allergy/AdvReac Type Severity Reaction Status Date / Time No Known Allergies Allergy Verified 01/06/23 10:22 Review of Systems ROS Statement: Those systems with pertinent positive or pertinent negative responses have been documented in the HPI. ROS Other: All systems not noted in ROS Statement are negative. Past Medical History Additional Past Medical History / Comment(s): THROAT ABSCESS, BPD History of Any Multi-Drug Resistant Organisms: None Reported Past Surgical History: No Surgical Hx Reported, Tonsillectomy Past Anesthesia/Blood Transfusion Reactions: No Reported Reaction Additional Past Anesthesia/Blood Transfusion Reaction / Comment(s): FIRST ANSTHETIC Past Psychological History: Anxiety, Bipolar, Depression Smoking Status: Current every day smoker, Vaper Past Alcohol Use History: Occasional Past Drug Use History: Cocaine - Past Family History Mother Family Medical History: No Reported History General Exam Limitations: no limitations General appearance: alert, in no apparent distress Head exam: Present: atraumatic, normocephalic, normal inspection Eye exam: Present: normal appearance, PERRL, EOMI. Absent: scleral icterus, conjunctival injection, periorbital swelling ENT exam: Present: normal exam, mucous membranes moist Neck exam: Present: normal inspection. Absent: tenderness, meningismus, lymphadenopathy Respiratory exam: Present: normal lung sounds bilaterally. Absent: respiratory distress, wheezes, rales, rhonchi, stridor Cardiovascular Exam: Present: normal rhythm, tachycardia, normal heart sounds. Absent: systolic murmur, diastolic murmur, rubs, gallop, clicks GI/Abdominal exam: Present: soft, normal bowel sounds. Absent: distended, tenderness, guarding, rebound, rigid Extremities exam: Present: normal inspection, full ROM, normal capillary refill. Absent: tenderness, pedal edema, joint swelling, calf tenderness Back exam: Present: normal inspection Neurological exam: Present: alert, oriented X3, CN II-XII intact Psychiatric exam: Present: normal affect, normal mood Skin exam: Present: warm, dry, intact, normal color. Absent: rash Course Vital Signs 01/06/23 01/06/23 01/06/23 08:35 10:05 11:25 Temperature 98.1 F 98.0 F Pulse Rate 120 H 110 H 89 Respiratory 18 18 18 Rate Blood Pressure 141/88 138/90 136/93 O2 Sat by Pulse 98 98 98 Oximetry Medical Decision Making - Medical Decision Making Was pt. sent in by a medical professional or institution (, PA, MENTAL HEALTH THERAPIST, urgent care, hospital, or penitentiary...) When possible be specific @ -No Did you speak to anyone other than the patient for history (EMS, parent, family, police, friend...)? What history was obtained from this source @ -No Did you review nursing and triage notes (agree or disagree)? Why? @ -I reviewed and agree with nursing and triage notes Were old charts reviewed (outside hosp., previous admission, EMS record, old EKG, old radiological studies, urgent care reports/EKG's, penitentiary records)? Report findings @ -No old charts were reviewed Differential Diagnosis (chest pain, altered mental status, abdominal pain women, abdominal pain men, vaginal bleeding, weakness, fever, dyspnea, syncope, headache, dizziness, GI bleed, back pain, seizure, CVA, palpatations, mental health, musculoskeletal)? @ -Unintentional overdose, intentional overdose, medical noncompliance EKG interpreted by me (3pts min.). @ -Yes and demonstrates sinus tachycardia with a rate of 109. OK interval 137. QRS 101. QTC 397. No acute ST segment elevations or depressions X-rays interpreted by me (1pt min.). @ -None done CT interpreted by me (1pt min.). @ -None done U/S interpreted by me (1pt. min.). @ -None done What testing was considered but not performed or refused? (CT, X-rays, U/S, labs)? Why? @ -None What meds were considered but not given or refused? Why? @ -None Did you discuss the management of the patient with other professionals (professionals i.e. , PA, MENTAL HEALTH THERAPIST, lab, RT, psych nurse, director of social work, hosted services analyst, teacher, marine safety officer, family caseworker)? Give summary @ -Spoke with poison control who gave recommendations Was smoking cessation discussed for >3mins.? @ -No Was critical care preformed (if so, how long)? @ -No Were there social determinants of health that impacted care today? How? (Homelessness, low income, unemployed, alcoholism, drug addiction, transportation, low edu. Level, literacy, decrease access to med. care, retirement, rehab)? @ -No Was there de-escalation of care discussed even if they declined (Discuss DNR or withdrawal of care, Hospice)? DNR status @ -No What co-morbidities impacted this encounter? (DM, HTN, Smoking, COPD, CAD, Cancer, CVA, ARF, Chemo, Hep., AIDS, mental health diagnosis, sleep apnea, morbid obesity)? @ -ADD Was patient admitted / discharged? Hospital course, mention meds given and route, prescriptions, significant lab abnormalities, going to OR and other pertinent info. @ -Discharged. Upon arrival patient was placed in room 17. Thorough history and physical exam was performed. Laboratory studies are conducted. Patient's ingestion was over 24 hours ago. Discussed the case with poison control who did give recommendations. At this time the patient will be discharged home and instructed not to take his nighttime dose of the medication. He may resume taking it tomorrow. I recommend that he follow-up with his psychiatrist for further refills. I do not recommend that the patient take his medications in the manner that he has come up with. I recommend that the patient take only one pill at a time 4 to the patient understood. He is instructed to return for any new or worsening symptoms. Patient discharged in stable condition Undiagnosed new problem with uncertain prognosis? @ -No Drug Therapy requiring intensive monitoring for toxicity (Heparin, Nitro, I nsulin, Cardizem)? @ -No Were any procedures done? @ -No Diagnosis/symptom? @ -Acute unintentional medication overdose Acute, or Chronic, or Acute on Chronic? @ -Acute Uncomplicated (without systemic symptoms) or Complicated (systemic symptoms)? @ -Complicated Side effects of treatment? @ -No Exacerbation, Progression, or Severe Exacerbation? @ -No Poses a threat to life or bodily function? How? (Chest pain, [place], [place], pneumonia, PE, COPD, DKA, ARF, appy, cholecystitis, CVA, Diverticulitis, Homicidal, Suicidal, threat to staff... and all critical care pts) @ -No - Lab Data Result diagrams: 01/06/23 09:55 01/06/23 09:55 Lab Results 01/06/23 01/06/23 01/06/23 Range/Units 09:19 09:55 09:55 WBC 7.8 (3.8-10.6) k/uL RBC 5.07 (4.30-5.90) m/uL Hgb 15.9 (13.0-17.5) gm/dL Hct 46.1 (39.0-53.0) % MCV 91.0 (80.0-100.0) fL MCH 31.4 (25.0-35.0) pg MCHC 34.5 (31.0-37.0) g/dL RDW 12.5 (11.5-15.5) % Plt Count 279 (150-450) k/uL MPV 7.2 Neutrophils % 57 % Lymphocytes % 35 % Monocytes % 5 % Eosinophils % 2 % Basophils % 1 % Neutrophils # 4.4 (1.3-7.7) k/uL Lymphocytes # 2.8 (1.0-4.8) k/uL Monocytes # 0.4 (0-1.0) k/uL Eosinophils # 0.1 (0-0.7) k/uL Basophils # 0.0 (0-0.2) k/uL Sodium 142 (137-145) mmol/L Potassium 3.9 (3.5-5.1) mmol/L Chloride 104 (98-107) mmol/L Carbon Dioxide 23 (22-30) mmol/L Anion Gap 15 mmol/L BUN 12 (9-20) mg/dL Creatinine 0.99 (0.66-1.25) mg/dL Est GFR (CKD-EPI)AfAm >90 (>60 ml/min/1.73 sqM) Est GFR (CKD-EPI)NonAf >90 (>60 ml/min/1.73 sqM) Glucose 135 H (74-99) mg/dL Plasma Lactic Acid [place] (0.7-2.0) mmol/L Calcium 10.1 (8.4-10.2) mg/dL Total Bilirubin 0.9 (0.2-1.3) mg/dL AST 55 (17-59) U/L ALT 136 H (4-49) U/L Alkaline Phosphatase 63 (38-126) U/L Creatine Kinase 187 H (55-170) U/L Total Protein 8.1 (6.3-8.2) g/dL Albumin 5.0 (3.5-5.0) g/dL Salicylates <1.0 mg/dL Urine Opiates Screen Not Detected (NotDetected) Ur Oxycodone Screen Not Detected (NotDetected) Urine Methadone Screen Not Detected (NotDetected) Ur Propoxyphene Screen Not Detected (NotDetected) Acetaminophen <10.0 ug/mL Ur Barbiturates Screen Not Detected (NotDetected) U Tricyclic Antidepress Not Detected (NotDetected) Ur Phencyclidine Scrn Not Detected (NotDetected) Ur Amphetamines Screen Detected H (NotDetected) U Methamphetamines Scrn Not Detected (NotDetected) U Benzodiazepines Scrn Not Detected (NotDetected) Urine Cocaine Screen Not Detected (NotDetected) U Marijuana (THC) Screen Not Detected (NotDetected) Serum Alcohol <10 mg/dL 01/06/23 Range/Units 09:55 WBC (3.8-10.6) k/uL RBC (4.30-5.90) m/uL Hgb (13.0-17.5) gm/dL Hct (39.0-53.0) % MCV (80.0-100.0) fL MCH (25.0-35.0) pg MCHC (31.0-37.0) g/dL RDW (11.5-15.5) % Plt Count (150-450) k/uL MPV Neutrophils % % Lymphocytes % % Monocytes % % Eosinophils % % Basophils % % Neutrophils # (1.3-7.7) k/uL Lymphocytes # (1.0-4.8) k/uL Monocytes # (0-1.0) k/uL Eosinophils # (0-0.7) k/uL Basophils # (0-0.2) k/uL Sodium (137-145) mmol/L Potassium (3.5-5.1) mmol/L Chloride (98-107) mmol/L Carbon Dioxide (22-30) mmol/L Anion Gap mmol/L BUN (9-20) mg/dL Creatinine (0.66-1.25) mg/dL Est GFR (CKD-EPI)AfAm (>60 ml/min/1.73 sqM) Est GFR (CKD-EPI)NonAf (>60 ml/min/1.73 sqM) Glucose (74-99) mg/dL Plasma Lactic Acid [place] 1.6 (0.7-2.0) mmol/L Calcium (8.4-10.2) mg/dL Total Bilirubin (0.2-1.3) mg/dL AST (17-59) U/L ALT (4-49) U/L Alkaline Phosphatase (38-126) U/L Creatine Kinase (55-170) U/L Total Protein (6.3-8.2) g/dL Albumin (3.5-5.0) g/dL Salicylates mg/dL Urine Opiates Screen (NotDetected) Ur Oxycodone Screen (NotDetected) Urine Methadone Screen (NotDetected) Ur Propoxyphene Screen (NotDetected) Acetaminophen ug/mL Ur Barbiturates Screen (NotDetected) U Tricyclic Antidepress (NotDetected) Ur Phencyclidine Scrn (NotDetected) Ur Amphetamines Screen (NotDetected) U Methamphetamines Scrn (NotDetected) U Benzodiazepines Scrn (NotDetected) Urine Cocaine Screen (NotDetected) U Marijuana (THC) Screen (NotDetected) Serum Alcohol mg/dL Disposition Clinical Impression: Amphetamine overdose Disposition: HOME SELF-CARE Condition: Stable Instructions (If sedation given, give patient instructions): Adult Overdose (ED) Additional Instructions: I recommend that you only take 1 pill at a time. Do not take a dose until tomorrow. Return for any new or worsening symptoms Is patient prescribed a controlled substance at d/c from ED?: No Referrals: Jefe Coombs MD [Primary Care Provider] - 1-2 days Time of Disposition: 11:10
[2023-01-06 11:34] VITALS: BP 136/93; PULSE 89; TEMP 98
== END 2023-01-06 11:25 | disposition home or self-care (01) ==
LOC: EC 08:29
DX: T43.621A Poisoning by amphetamines, accidental (unintentional), initial encounter (principal); F31.9 Bipolar disorder, unspecified; F41.9 Anxiety disorder, unspecified; F17.290 Nicotine dependence, other tobacco product, uncomplicated; F14.90 Cocaine use, unspecified, uncomplicated; Z79.899 Other long term (current) drug therapy
CPT/HCPCS: 36415; 80053; 80143; 80179; 80306; 80320; 82550; 83605; 85025; 93005; 99284